=== PATIENT | female | born 1935 | race Caucasian/White ===

== ENCOUNTER 2019-07-14 15:40 | Inpatient (IN) | payer MEDICARE ==
[~2019-07-14] VITALS: Ht 157.5 cm; Wt 54.0 kg
[2019-07-14] MEDS ORDERED: LISI10TA2 PO (16:42)
[2019-07-14] MEDS ORDERED: ACET325T9 PO (16:42)
[2019-07-14] MEDS ORDERED: METF10007 PO (16:42)
[2019-07-14] MEDS ORDERED: CALC500T31 PO (16:42)
[2019-07-14] MEDS ORDERED: SERT50TA PO (16:42)
[2019-07-14] MEDS ORDERED: ONDA4TAB7 PO (16:42)
[2019-07-14] MEDS ORDERED: SITA50TA PO (16:42)
[2019-07-14] MEDS ORDERED: GLIM2TAB3 PO (16:42)
[2019-07-14 18:37] VITALS: BP 120/65
--- NOTE | 2019-07-14 19:59 | PDOC ---
Exam Note: Bryan Note: Please also refer to the separate dictated note~for this date of service dictated separately. Discussed the patient with Nursing staff reviewed the chart.~Reviewed interim history and current functioning. Reviewed vital signs,~Labs/ Radiology~and current medications noted below. Continue current treatment with the changes noted in the dictated addendum note Assessment: Vital Signs/I&O: Vital Signs Date Time Temp Pulse Resp B/P (MAP) Pulse Ox O2 Delivery O2 Flow Rate FiO2 07/14/19 18:37 98.2 75 16 120/65 (83) Room Air 96.0 Labs: Laboratory Tests Test 07/14/19 19:35 Glucose (Fingerstick) 195 mg/dL (70-99) H Current Medications: I have reviewed the current psychotropics carefully including drug interactions. Risk benefit ratio favors no change other than as noted in my dictated progress note. RODRIGO NORTON MD Jul 14, 2019 19:59
--- NOTE | 2019-07-14 21:33 | PN ---
DATE: 07/14/2019 PSYCHIATRIC PROGRESS NOTE This note covers the elements not covered in my initial note, 07/14/2019. IDENTIFYING DATA: The patient is an 84-year-old female, referred to us from the Emergency Room at [facility], where she presented from her independent living and admitted by her daughter, who is her power of board design engineer. She was brought to the ER on account of increased paranoia, totally convinced someone was stealing her money. Her family had brought the patient to the Emergency Room 07/13/2019 with acute mental status changes, increased confusion, not taking her medications at home, 20-pound weight loss in the past 1 month, and increased anxiety. She is obsessive and fearfulness that mice will get in her house because of 2 dishes being left in the sink. She is fixated on not having enough shoes and has 25 pairs of them. Symptoms have been worsening over the past 2-1/2 weeks. She has failed outpatient psychiatric interventions. Unable to function in the independent living, brought to the ER, and then referred for inpatient psychiatric hospitalization. CHIEF COMPLAINT: "Yes, I get a little forgetful, but people are stealing. My was a supervisor channel process. We used to sing together. He at 03:20 p.m. on 08/14/2016." The patient seemed to be very particular about this and had a sad affect as she related the loss of her 3 years ago. HISTORY OF PRESENT ILLNESS: The patient has been reasonably cognitively intact, but reportedly has had some short-term memory deficits, worsening paranoia, obsessiveness, anxiety, and depression. She minimizes the latter. She has had the weight change, quite significant, as noted above, some sleep disturbance, no active suicidal or homicidal ideation. At the previous hospital, she had the staff sanitize the hospital tray before she would eat off of it. She would not wear her hearing aids until her son-in-law sanitize them. She was paranoid about people stealing her money and checkbook, which she keeps with her all the time. ALLERGIES: Negative. CODE STATUS: DNR. ACCU-CHEKS: Daily. PAST MEDICAL HISTORY: Diabetes mellitus, hypertension, and acute dehydration. DIET: Regular, thin liquids. Takes her medications whole, ambulates independently. UA, 07/13/2019, was negative. CURRENT PSYCHOTROPICS: Zoloft 50 mg a day. FAMILY HISTORY: Noncontributory. SOCIAL HISTORY: No history of alcohol, drug abuse, physical, sexual, or elder abuse. She is not known to be a perpetrator. REACTION TO HOSPITALIZATION: The patient accepting of it. ASSETS: Supportive family. MENTAL STATUS EXAMINATION: The patient was seen individually evening of 07/14/2019. She is oriented to herself and situation. Speech has some latency, coherent. She is quite anxious, restless, constantly moving her fingers. Abstraction fair, computation is somewhat impaired, language function intact, and attention span short. Mood and affect remains somewhat withdrawn, anxious, somewhat paranoid, and obsessive. No active suicidal or homicidal ideation. LABORATORY DATA: Reviewed. 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 CT head prior to admission has been unremarkable. I will see the patient daily individually from a psychiatric standpoint. Medical followup with Dr. Patel. PLAN: Continued after she has been on Zoloft 50 mg a day for 2 days and will increase to 75 mg a day. Add Risperdal 0.125 mg p.o. at bedtime given her paranoia and to augment the antidepressants. Estimated length of stay 10-12 days. DISPOSITION PLANS: Possibly back to independent living when stable. MAN Orquidea NORTON MD DR: SANDY/diane JOB#: [id number] / [id number]
[2019-07-14] MEDS ORDERED: METHYL SALICYLATE/MENTHOL TOPICAL OINTMENT 57GM TUBE. TP PRN (22:45)
[2019-07-14] MEDS ORDERED: ACETAMINOPHEN 325 MG TABLET PO PRN ×2 (22:45→23:00)
[2019-07-14] MEDS ORDERED: MAG HYDROX/AL HYDROX/SIMETH 30 ML ORAL.SUSP PO PRN (22:45)
[2019-07-14] MEDS ORDERED: MAGNESIUM HYDROXIDE 2,400 MG/30 ML ORAL.SUSP. PO PRN (22:45)
[2019-07-14] MEDS ORDERED: CALCIUM CARBONATE 500 MG TAB.CHEW PO PRN (23:00)
[2019-07-14] MEDS ORDERED: ONDANSETRON ODT 4 MG TAB.RAPDIS PO PRN (23:15)
[2019-07-15 06:13] VITALS: BP 117/72
[2019-07-15 07:27] LABS: BASO # 0.1 x10^3/uL (0.0-0.2); BASO % 1 % (0-3); EOS # 0.1 x10^3/uL (0.0-0.7); EOS % 2 % (0-3); HEMATOCRIT 39.5 % (36.0-47.0); HEMOGLOBIN 13.1 g/dL (12.0-15.5); LYMPH # 1.3 x10^3/uL (1.0-4.8); LYMPH % 19 % (24-48); MEAN CORPUSCULAR HEMOGLOBIN 30 pg (25-35); MEAN CORPUSCULAR HGB CONC 33 g/dL (31-37); MEAN CORPUSCULAR VOLUME 92 fL (79-100); MONO # 0.7 x10^3/uL (0.0-1.1); MONO % 10 % (0-9); NEUT # 4.9 x10^3uL (1.8-7.7); NEUT % 69 % (31-73); PLATELET COUNT 204 x10^3/uL (140-400); RED BLOOD COUNT 4.31 x10^6/uL (3.50-5.40); RED CELL DISTRIBUTION WIDTH 14.2 % (11.5-14.5); WHITE BLOOD COUNT 7.1 x10^3/uL (4.0-11.0)
[2019-07-15 07:45] LABS: ALBUMIN/GLOBULIN RATIO 1.2 (1.0-1.7); CALCIUM 8.1 mg/dL (8.5-10.1); GFR 52.6; POTASSIUM 4.2 mmol/L (3.5-5.1); TOTAL BILIRUBIN 0.5 mg/dL (0.2-1.0); TOTAL PROTEIN 5.6 g/dL (6.4-8.2)
[2019-07-15] MEDS ORDERED: SERTRALINE 50 MG TABLET. PO SCH (09:00)
[2019-07-15] MEDS: SERTRALINE 50 MG TABLET. PO SCH (09:06)
[2019-07-15] MEDS: GLIMEPIRIDE 2 MG TABLET PO SCH (09:07)
[2019-07-15] MEDS: metFORMIN 500 MG TABLET PO SCH (09:07)
[2019-07-15] MEDS: LISINOPRIL 10 MG TABLET PO SCH (09:07)
[2019-07-15] MEDS: LINAGLIPTIN 5 MG TABLET PO SCH (09:08)
--- NOTE | 2019-07-15 12:44 | TX PLAN ---
Interdisciplinary Tx Plan Admission Information Jul 14, 2019 at 17:45 Legal Status (on Admission): Voluntary DPOA/Guardian Name: Nirali Martinez, DPOA Contact Verified Code Status: DNR Allergies: Coded Allergies: No Known Drug Allergies (Unverified , 07/14/19) Estimated Length of Stay: 10 Diagnoses Primary Diagnosis: Psychosis unspecified, MDD with Psychotic Features Reasons for Admission: Sig. Change Appetite, Anxiety/Panic, Suspicious/paranoid, Confusion/Disoriented Problem in Patient's Words: Per pt., "Well, that's the problem, I don't know." Per pt. daughter, pt. wasn't taking her medications correctly and was paranoid pt. daughter was not giving her the right medications. Problems Active Problems: Per pt. intake, pt. family brought her to the ED for increased confusion, not taking medication at home, 20 lb. weight loss in one month, increased anxiety, example - fearful mice will get in her house with two dishes being left in the sink, fixated on not having enough shoes when she has 25 pair, and increased paranoia - someone may steal her money. Inactive Problems: Pt. is medication compliant to encouragement. Pt Strengths/Limitations Ability for [place]: Fair Cognitive Functioning/Ability: Fair Communication Skills/Ability: Fair Financial Resources: Fair Insight/Judgement: Poor Intellectual Ability: Fair Physical Health: Fair Social Skills: Fair Stability in Family: Fair Verbal Skills: Fair Discharge Criteria Discharge Criteria: Able meet basic life need, Able to meet health needs, OP monitor medical prob, Adequate arrangements @DC, Adequate self-care, Verbal commit med comply, Improved behavior, Improved mood/thought Other Discharge Comments: Pt. may need a higher level of care at time of discharge. Preliminary Discharge Plan Preliminary DC Plan: Current Living Arrange. Special Precautions Fall Risk: Low Initial D/C Plan Pt. may return to her apartment at [facility], however, pt. may also require a higher level of care. Identified Discharge Needs: Follow up with PCP. Home Health if pt. returns home. Currently Utilized Resources Currently Utilized Resources/P: PCP Dr. Reyes Identified Problems/Hx/Goals Objectives/Short-Term Goals Short Term Goals: Control abnormal behavior, Dec. Anxiety/Panic, Medication Stabilization, Monitor Med Effects, Promote Coping Skill Short Term Goals in Patient's: Per pt., "I guess to get some help." "They are doing everything they can." Pt. daughter would like to figure out what is going on, as she reports "everything was fine" 2 1/2 weeks ago. Interventions/Frequency Staff Interventions/Frequency&: Psychiatrist - Daily Nursing - Daily SW - 3 times weekly RT - 3 times weekly History Vocational History: Per pt., "I can't remember." Pt. 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 graduated from high school. Community Follow-up Pt. will need a follow up with PCP. Possible need for home health if pt. returns to her apartment. Treatment Plan Explained Patient/Metallurgy Teacher had this treatment plan explained to him/her as indicated by the signature below and has been given the opportunity to ask questions and make suggestions: Date: Patient/Metallurgy Teacher Signature: Patient/Metallurgy Teacher Decline: No Additional Comments Pt. daughter, Nirali, would like to be contacted for treatment team. Team Members Signatures Team Members Psychiatrist Date Nursing Date CM/SW Date Activity Therapy Date Other Date Other Date WAITERICJul 15, 2019 12:43
[2019-07-15 14:20] LABS: THYROID STIM HORMONE (TSH) 1.208 uIU/mL (0.358-3.740)
[2019-07-15 15:55] VITALS: BP 149/77
[2019-07-15 17:07] LABS: THYROXINE 6.9 ug/dL (4.5-12.0)
--- NOTE | 2019-07-15 19:53 | PDOC ---
Exam Note: Bryan Note: Please also refer to the separate dictated note~for this date of service dictated separately.~Patient seen individually. Discussed the patient with Nursing staff reviewed the chart.~Reviewed interim history and current functioning. Reviewed vital signs,~Labs/ Radiology~and current medications noted below. Continue current treatment with the changes noted in the dictated addendum note Assessment: Vital Signs/I&O: Vital Signs Date Time Temp Pulse Resp B/P (MAP) Pulse Ox O2 Delivery O2 Flow Rate FiO2 07/15/19 15:55 98.4 79 16 149/77 (101) 95 07/15/19 06:13 Room Air 07/14/19 18:37 96.0 I & O 07/14/19 07/14/19 07/15/19 14:59 22:59 06:59 Intake Total 480 ml Balance 480 ml Labs: Laboratory Tests Test 07/15/19 07:05 07/15/19 07:25 White Blood Count 7.1 x10^3/uL (4.0-11.0) Red Blood Count 4.31 x10^6/uL (3.50-5.40) Hemoglobin 13.1 g/dL (12.0-15.5) Hematocrit 39.5 % (36.0-47.0) Mean Corpuscular Volume 92 fL (79-100) Mean Corpuscular Hemoglobin 30 pg (25-35) Mean Corpuscular Hemoglobin Concent 33 g/dL (31-37) Red Cell Distribution Width 14.2 % (11.5-14.5) Platelet Count 204 x10^3/uL (140-400) Neutrophils (%) (Auto) 69 % (31-73) Lymphocytes (%) (Auto) 19 % (24-48) L Monocytes (%) (Auto) 10 % (0-9) H Eosinophils (%) (Auto) 2 % (0-3) Basophils (%) (Auto) 1 % (0-3) Neutrophils # (Auto) 4.9 x10^3uL (1.8-7.7) Lymphocytes # (Auto) 1.3 x10^3/uL (1.0-4.8) Monocytes # (Auto) 0.7 x10^3/uL (0.0-1.1) Eosinophils # (Auto) 0.1 x10^3/uL (0.0-0.7) Basophils # (Auto) 0.1 x10^3/uL (0.0-0.2) Sodium Level 143 mmol/L (136-145) Potassium Level 4.2 mmol/L (3.5-5.1) Chloride Level 110 mmol/L (98-107) H Carbon Dioxide Level 23 mmol/L (21-32) Anion Gap 10 (6-14) Blood Urea Nitrogen 22 mg/dL (7-20) H Creatinine 1.0 mg/dL (0.6-1.0) Estimated GFR (Cockcroft-Gault) 52.6 BUN/Creatinine Ratio 22 (6-20) H Glucose Level 104 mg/dL (70-99) H Calcium Level 8.1 mg/dL (8.5-10.1) L Magnesium Level 2.0 mg/dL (1.8-2.4) Iron Level 80 ug/dL (50-170) Total Iron Binding Capacity 209 ug/dL (250-450) L Iron Saturation 38 % (15-34) H Total Bilirubin 0.5 mg/dL (0.2-1.0) Aspartate Amino Transferase (AST) 28 U/L (15-37) Alanine Aminotransferase (ALT) 23 U/L (14-59) Alkaline Phosphatase 59 U/L (46-116) Total Protein 5.6 g/dL (6.4-8.2) L Albumin 3.0 g/dL (3.4-5.0) L Albumin/Globulin Ratio 1.2 (1.0-1.7) Triglycerides Level 104 mg/dL (0-150) Cholesterol Level 92 mg/dL (0-200) LDL Cholesterol, Calculated 41 mg/dL (0-100) VLDL Cholesterol, Calculated 20 mg/dL (0-40) Non-HDL Cholesterol Calculated 61 mg/dL (0-129) HDL Cholesterol 31 mg/dL (40-60) L Cholesterol/HDL Ratio 2.0 Vitamin B12 Level 164 pg/mL (247-911) L 25-Hydroxy Vitamin D Total 16.0 ng/mL (30-100) L Thyroid Stimulating Hormone (TSH) 1.208 uIU/mL (0.358-3.740) Thyroxine (T4) 6.9 ug/dL (4.5-12.0) Total Triiodothyronine (TT3) 65 ng/dL (71-180) L Treponema pallidum Antibody Nonreactive (Nonreactive) Glucose (Fingerstick) 108 mg/dL (70-99) H Current Medications: Meds: Current Medications Medications (Trade) Dose Ordered Sig/Gena Route PRN Reason Start Time Stop Time Status Last Admin Dose Admin Glimepiride (Amaryl) 2 mg DAILY PO 07/15/19 09:00 07/15/19 09:07 Lisinopril (Prinivil) 10 mg DAILY PO 07/15/19 09:00 07/15/19 09:07 Metformin HCl (Glucophage) 1,000 mg DAILYWBKFT PO 07/15/19 08:00 07/15/19 09:07 Linagliptin (Tradjenta) 5 mg DAILY PO 07/15/19 09:00 07/15/19 09:08 Sertraline HCl (Zoloft) 75 mg DAILY PO 07/15/19 09:00 07/15/19 09:06 I have reviewed the current psychotropics carefully including drug interactions. Risk benefit ratio favors no change other than as noted in my dictated progress note. Diagnosis: Problems: (1) Anxiety disorder (2) Major depressive disorder, recurrent episode (3) Psychosis, atypical (4) Psychotic depression RODRIGO NORTON MD Jul 15, 2019 19:53
[2019-07-15] MEDS: risperiDONE 0.25 MG TABLET. PO SCH (20:43)
[2019-07-16 00:06] LABS: HEMOGLOBIN A1C 7.9 % (4.8-5.6)
[2019-07-16 06:25] VITALS: BP 145/71
[2019-07-16] MEDS: SERTRALINE 50 MG TABLET. PO SCH (09:11)
[2019-07-16] MEDS: LISINOPRIL 10 MG TABLET PO SCH (09:12)
[2019-07-16] MEDS: metFORMIN 500 MG TABLET PO SCH (09:12)
[2019-07-16] MEDS: GLIMEPIRIDE 2 MG TABLET PO SCH (09:12)
[2019-07-16] MEDS: LINAGLIPTIN 5 MG TABLET PO SCH (09:12)
[2019-07-16 16:10] VITALS: BP 144/73
--- NOTE | 2019-07-16 19:56 | PDOC ---
Exam Note: Bryan Note: Please also refer to the separate dictated note~for this date of service dictated separately.~Patient seen individually. Discussed the patient with Nursing staff reviewed the chart.~Reviewed interim history and current functioning. Reviewed vital signs,~Labs/ Radiology~and current medications noted below. Continue current treatment with the changes noted in the dictated addendum note Assessment: Vital Signs/I&O: Vital Signs Date Time Temp Pulse Resp B/P (MAP) Pulse Ox O2 Delivery O2 Flow Rate FiO2 07/16/19 16:10 97.9 87 19 144/73 (96) 96 Room Air 07/14/19 18:37 96.0 I & O 07/15/19 07/15/19 07/16/19 15:00 23:00 07:00 Intake Total 300 ml 240 ml 120 ml Balance 300 ml 240 ml 120 ml Labs: Laboratory Tests Test 07/16/19 08:00 Glucose (Fingerstick) 156 mg/dL (70-99) H Current Medications: Meds: Current Medications Medications (Trade) Dose Ordered Sig/Gena Route PRN Reason Start Time Stop Time Status Last Admin Dose Admin Risperidone (RisperDAL) 0.125 mg HS PO 07/15/19 21:00 07/15/19 20:43 I have reviewed the current psychotropics carefully including drug interactions. Risk benefit ratio favors no change other than as noted in my dictated progress note. Diagnosis: Problems: (1) Anxiety disorder (2) Major depressive disorder, recurrent episode (3) Psychosis, atypical (4) Psychotic depression RODRIGO NORTON MD Jul 16, 2019 19:56
[2019-07-16] MEDS: risperiDONE 0.25 MG TABLET. PO SCH (20:39)
--- NOTE | 2019-07-16 23:53 | PN ---
DATE: 07/15/2019 PSYCHIATRIC PROGRESS NOTE This late entry 07/15/2019 covers elements not covered in my initial note. SUBJECTIVE: I met with the patient in the evening. Per HAKAN Guo, the patient slept 5-1/2 hours previous evening. The patient resistive to medications, later took her medications during the day, somewhat withdrawn, does have some short-term memory deficits. CT head negative. REVIEW OF SYSTEMS: No CV, , pulmonary, eye system symptoms on review. MENTAL STATUS EXAM: Oriented to herself and situation. Speech has some latency, coherent, often responses monosyllabic. Abstraction fair, computation impaired, language function intact. Mood and affect somewhat withdrawn. LABORATORY DATA: Reviewed. IMPRESSION: Psychotic disorder, unspecified; major neurocognitive disorder; early Alzheimer, vascular with delusion; depression; anxiety disorder, unspecified. Rest unchanged. PLAN: Continue psychotropics from initial note. Zoloft has been increased from 50 mg a day to 75 mg a day, Risperdal added 0.125 mg at bedtime. Rest unchanged for now. MAN Orquidea NORTON MD DR: SANDY/diane JOB#: [id number] / [id number]
[2019-07-17 06:36] VITALS: BP 155/75
[2019-07-17] MEDS: metFORMIN 500 MG TABLET PO SCH (08:27)
[2019-07-17] MEDS: SERTRALINE 50 MG TABLET. PO SCH (08:27)
[2019-07-17] MEDS: LINAGLIPTIN 5 MG TABLET PO SCH (08:27)
[2019-07-17] MEDS: LISINOPRIL 10 MG TABLET PO SCH (08:28)
[2019-07-17] MEDS: GLIMEPIRIDE 2 MG TABLET PO SCH (08:28)
--- NOTE | 2019-07-17 08:58 | HP ---
ADMIT DATE: 07/14/2019 PSYCHIATRIC PROGRESS NOTE This note covers the elements not covered in my initial note, 07/14/2019. IDENTIFYING DATA: The patient is an 84-year-old female, referred to us from the Emergency Room at [facility], where she presented from her independent living and admitted by her daughter, who is her power of real estate attorney. She was brought to the ER on account of increased paranoia, totally convinced someone was stealing her money. Her family had brought the patient to the Emergency Room 07/13/2019 with acute mental status changes, increased confusion, not taking her medications at home, 20-pound weight loss in the past 1 month, and increased anxiety. She is obsessive and fearfulness that mice will get in her house because of 2 dishes being left in the sink. She is fixated on not having enough shoes and has 25 pairs of them. Symptoms have been worsening over the past 2-1/2 weeks. She has failed outpatient psychiatric interventions. Unable to function in the independent living, brought to the ER, and then referred for inpatient psychiatric hospitalization. CHIEF COMPLAINT: "Yes, I get a little forgetful, but people are stealing. My was a broach setter. We used to sing together. He at 03:20 p.m. on 08/14/2016." The patient seemed to be very particular about this and had a sad affect as she related the loss of her 3 years ago. HISTORY OF PRESENT ILLNESS: The patient has been reasonably cognitively intact, but reportedly has had some short-term memory deficits, worsening paranoia, obsessiveness, anxiety, and depression. She minimizes the latter. She has had the weight change, quite significant, as noted above, some sleep disturbance, no active suicidal or homicidal ideation. At the previous hospital, she had the staff sanitize the hospital tray before she would eat off of it. She would not wear her hearing aids until her son-in-law sanitize them. She was paranoid about people stealing her money and checkbook, which she keeps with her all the time. ALLERGIES: Negative. CODE STATUS: DNR. ACCU-CHEKS: Daily. PAST MEDICAL HISTORY: Diabetes mellitus, hypertension, and acute dehydration. DIET: Regular, thin liquids. Takes her medications whole, ambulates independently. UA, 07/13/2019, was negative. CURRENT PSYCHOTROPICS: Zoloft 50 mg a day. FAMILY HISTORY: Noncontributory. SOCIAL HISTORY: No history of alcohol, drug abuse, physical, sexual, or elder abuse. She is not known to be a perpetrator. REACTION TO HOSPITALIZATION: The patient accepting of it. ASSETS: Supportive family. MENTAL STATUS EXAMINATION: The patient was seen individually evening of 07/14/2019. She is oriented to herself and situation. Speech has some latency, coherent. She is quite anxious, restless, constantly moving her fingers. Abstraction fair, computation is somewhat impaired, language function intact, and attention span short. Mood and affect remains somewhat withdrawn, anxious, somewhat paranoid, and obsessive. No active suicidal or homicidal ideation. LABORATORY DATA: Reviewed. 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 CT head prior to admission has been unremarkable. I will see the patient daily individually from a psychiatric standpoint. Medical followup with Dr. Patel. PLAN: Continued after she has been on Zoloft 50 mg a day for 2 days and will increase to 75 mg a day. Add Risperdal 0.125 mg p.o. at bedtime given her paranoia and to augment the antidepressants. Estimated length of stay 10-12 days. DISPOSITION PLANS: Possibly back to independent living when stable. MAN Orquidea NORTON MD DR: SANDY/diane JOB#: [id number] / [id number]
[2019-07-17 15:44] VITALS: BP 133/74
--- NOTE | 2019-07-17 19:54 | PDOC ---
Exam Note: Bryan Note: Please also refer to the separate dictated note~for this date of service dictated separately.~Patient seen individually. Discussed the patient with Nursing staff reviewed the chart.~Reviewed interim history and current functioning. Reviewed vital signs,~Labs/ Radiology~and current medications noted below. Continue current treatment with the changes noted in the dictated addendum note Assessment: Vital Signs/I&O: Vital Signs Date Time Temp Pulse Resp B/P (MAP) Pulse Ox O2 Delivery O2 Flow Rate FiO2 07/17/19 15:44 97.8 80 18 133/74 (93) 96 07/16/19 16:10 Room Air 07/14/19 18:37 96.0 I & O 07/16/19 07/16/19 07/17/19 15:00 23:00 07:00 Intake Total 240 ml 360 ml Balance 240 ml 360 ml Labs: Laboratory Tests Test 07/17/19 07:20 Glucose (Fingerstick) 180 mg/dL (70-99) H Current Medications: I have reviewed the current psychotropics carefully including drug interactions. Risk benefit ratio favors no change other than as noted in my dictated progress note. Diagnosis: Problems: (1) Anxiety disorder (2) Major depressive disorder, recurrent episode (3) Psychosis, atypical (4) Psychotic depression RODRIGO NORTON MD Jul 17, 2019 19:54
[2019-07-17] MEDS: risperiDONE 0.25 MG TABLET. PO SCH (20:16)
--- NOTE | 2019-07-17 21:10 | PN ---
DATE: 07/16/2019 PSYCHIATRIC PROGRESS NOTE This late entry 07/16/2019 covers the elements not covered in my initial note. SUBJECTIVE: I met with the patient in the evening of 07/16/2019 and staffed at a treatment team meeting with the entire team in the morning and the patient's daughter, Roslyn attended the conference. Social service staff remarked how Roslyn becomes extremely emotional when visiting the patient and we addressed this with her, encouraging her to be a symbol of stability in the patient's life and managing her own emotions about her mother's condition might be helpful. The patient reportedly has had a significant change in her mood and anxiety over the last 2-1/2 weeks or so. Sleeping 5-1/2 hours, more confused at times, attending groups. REVIEW OF SYSTEMS: No CV, , pulmonary, eye system symptoms on review. Reliability poor. MENTAL STATUS EXAM: Oriented to herself and situation. Insight, judgment, recent memory is impaired. Language function is intact. Mood and affect withdrawn, depressed. She was the only one left after supper in the dining room, eating very slowly that is where I met with her. IMPRESSION: Unchanged from initial note. PLAN: No change from initial note and we will further make adjustments in her Zoloft, which is currently 75 mg a day, Risperdal 0.125 mg at bedtime. There is no clear reason to consider cholinesterase inhibitors at this stage. MAN Orquidea NORTON MD DR: SANDY/diane JOB#: [id number] / [id number]
[2019-07-18 05:50] VITALS: BP 124/65
[2019-07-18] MEDS: SERTRALINE 50 MG TABLET. PO SCH (09:23)
[2019-07-18] MEDS: LINAGLIPTIN 5 MG TABLET PO SCH (09:25)
[2019-07-18] MEDS: GLIMEPIRIDE 2 MG TABLET PO SCH (09:25)
[2019-07-18] MEDS: LISINOPRIL 10 MG TABLET PO SCH (09:25)
[2019-07-18] MEDS: metFORMIN 500 MG TABLET PO SCH (09:25)
--- NOTE | 2019-07-18 11:08 | PN ---
DATE: 07/17/2019 PSYCHIATRIC PROGRESS NOTE This late entry of 07/17/2019 covers elements not covered in my initial note. SUBJECTIVE: I met with the patient in the evening of 07/17/2019. The patient slept 6-1/2 hours previous night. The patient's daughter, Roslyn had attended the treatment team meeting the day before and we discussed at some length appropriate interactions with the patient to help her with some stability within the context of her worsening confusion and psychotic symptoms. Roslyn seemed quite receptive. REVIEW OF SYSTEMS: Positive for tiredness. No CV, , pulmonary, eye system symptoms on review. She is quite anxious, withdrawn, suspicious, as I met with her. MENTAL STATUS EXAM: Oriented to herself, times, situation. Speech has some latency, often responses monosyllabic. Abstraction fair, computation impaired, language function intact. Mood and affect withdrawn. LABORATORY DATA: Reviewed. IMPRESSION: Major depressive disorder, recurrent with psychotic features; mild cognitive impairment; psychotic disorder, unspecified. Rest unchanged. PLAN: No change from initial note. Maintain Zoloft and Risperdal. MAN Orquidea NORTON MD DR: SANDY/diane JOB#: [id number] / [id number]
--- NOTE | 2019-07-18 11:08 | PN ---
DATE: 07/18/2019 PSYCHIATRIC PROGRESS NOTE This late entry, 07/18, covers the elements not covered in my initial note. SUBJECTIVE: I met with the patient on the morning of 07/18. The patient slept 6-1/4 hours previous night. She appears confused, anxious met with her in her room, not very verbal, very tentative. REVIEW OF SYSTEMS: No CV, , pulmonary, eye systems symptoms on review. MENTAL STATUS EXAM: Oriented to herself, at times situation. Insight, judgment, recent memory is impaired. Language function intact. Mood and affect depressed, withdrawn, paranoid. LABORATORY DATA: Reviewed. IMPRESSION: Unchanged from initial note. PLAN: No change from initial note. RODRIGO NORTON MD DR: SANDY/diane JOB#: [id number] / [id number]
[2019-07-18 16:16] VITALS: BP 110/67
--- NOTE | 2019-07-18 17:15 | CONS ---
DATE OF CONSULTATION: 07/18/2019 REASON FOR CONSULTATION: Medical management. HISTORY OF PRESENT ILLNESS: The patient is an 84-year-old female patient who lives at home and was referred from [facility] Emergency Room on account of increased confusion, not taking her medications. She had 20-pound weight loss in the last month. She has increased anxiety. She is fearful mice will get into her house since she left two dishes in the sink, fixated on not having enough shoes. She has 25 pairs, obsessed with cleanliness. 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 Medically, she is known to have type 2 diabetes, hypertension and episodes of acute dehydration. PAST SURGICAL HISTORY: Unobtainable. ALLERGIES: She has no known drug allergies. MEDICATIONS: She is currently on following medications: She is on lisinopril 10 mg once a day, acetaminophen 650 mg every 4 hours, sertraline 50 mg daily, calcium carbonate 500 mg 4 times a day, ondansetron 4 mg every 6 hours, metformin 1000 mg daily, sitagliptin phosphate 50 mg daily and glimepiride 2 mg once a day. FAMILY HISTORY: Noncontributory. SOCIAL HISTORY: She lives at home. She does not smoke, drink alcohol or use any recreational drugs. REVIEW OF SYSTEMS: Unobtainable as the patient was extremely anxious when we approached her and actually refusing to talk to us. PHYSICAL EXAMINATION: GENERAL: On examining her, she looked pale, but no jaundice, cyanosis or thyromegaly. No jugular venous distension. No lower limb edema. VITAL SIGNS: Her heart rate was 74, blood pressure 110/67, temperature was 97.2, respiratory rate was 20 and oxygen saturation was 97%. HEAD, EYES, EARS, NOSE AND THROAT: Showed normocephalic, atraumatic. NECK: Supple. HEART: Showed normal first and second heart sounds with no gallop or murmur. CHEST: Clear to auscultation. No crepitation or rhonchi. ABDOMEN: Scaphoid, soft, nontender. NEUROLOGIC: She seems to be grossly intact. She is able to ambulate without assistance or assistive devices. LABORATORY DATA: Showed white cell count 7100, hemoglobin 13, hematocrit 39, MCV 92 and platelet count of 204,000. Her chemistry showed serum sodium 143, potassium 4.2, chloride 110, bicarbonate 23, anion gap of 10, BUN 22, creatinine 1, estimated GFR was 52 mL per minute, glucose 104. Her hemoglobin A1c was 7.9%. Calcium was 8.1, magnesium was 2. Her serum iron 80, TIBC was 209 and iron saturation was 38. Her total bilirubin, AST, ALT, alkaline phosphatase were normal. Total protein was 5.6, albumin 3. Her serum triglycerides were 104, cholesterol 92, LDL was 41, VLDL was 20 and HDL cholesterol was 31 and ratio was 2. Her vitamin B12 is 164 picograms, which is extremely low. TSH was normal; however, her 25-hydroxyvitamin D was 16 ng/mL. Her T3 is low at 65 and total T4 is 6.9, which is well within normal range. Her treponema pallidum antibodies were nonreactive. IMPRESSION: In summary, this is an 84-year-old female patient who was admitted with increased confusion and not taking her medication. She has lost 20 pounds in the last month. She has increased anxiety, fearful that mice will get into her house since she left two dishes at the sink, fixated on not having enough shoes, perhaps she has 25 pairs, obsessed with clamminess. Looking at her labs, the patient has extremely low vitamin B12 and vitamin D. Her vitamin B12 is only 164, with the lower limit of normal at 247 pg/mL and vitamin D is only 60 ng/mL, normal range of 30 to 100. PLAN: My plan is to start her on vitamin D supplement as well as vitamin B12 supplement. Thank you, Dr. Reynoso for allowing me to participate in the care of this patient. MIGUEL ANGEL CASTILLO MD DR: MANSOOR/diane JOB#: [id number] / [id number]
[2019-07-18] MEDS: CHOLECALCIFEROL (VITAMIN D3) 50,000 UNIT CAPSULE PO SCH (17:16)
[2019-07-18] MEDS: risperiDONE 0.25 MG TABLET. PO SCH (20:02)
--- NOTE | 2019-07-18 20:40 | PDOC ---
Exam Note: Bryan Note: Please also refer to the separate dictated note~for this date of service dictated separately.~Patient seen individually. Discussed the patient with Nursing staff reviewed the chart.~Reviewed interim history and current functioning. Reviewed vital signs,~Labs/ Radiology~and current medications noted below. Continue current treatment with the changes noted in the dictated addendum note Assessment: Vital Signs/I&O: Vital Signs Date Time Temp Pulse Resp B/P (MAP) Pulse Ox O2 Delivery O2 Flow Rate FiO2 07/18/19 16:16 97.2 74 20 110/67 (81) 97 07/16/19 16:10 Room Air 07/14/19 18:37 96.0 I & O 07/17/19 07/17/19 07/18/19 14:59 22:59 06:59 Intake Total 480 ml 240 ml Balance 480 ml 240 ml Labs: Laboratory Tests Test 07/18/19 07:50 Glucose (Fingerstick) 110 mg/dL (70-99) H Current Medications: Meds: Current Medications Medications (Trade) Dose Ordered Sig/Gena Route PRN Reason Start Time Stop Time Status Last Admin Dose Admin Vitamin D (Vitamin D3) 50,000 unit WEEKLY PO 07/18/19 16:45 07/18/19 17:16 I have reviewed the current psychotropics carefully including drug interactions. Risk benefit ratio favors no change other than as noted in my dictated progress note. Diagnosis: Problems: (1) Anxiety disorder (2) Major depressive disorder, recurrent episode (3) Psychosis, atypical (4) Psychotic depression RODRIGO NORTON MD Jul 18, 2019 20:40
[2019-07-19 06:31] VITALS: BP 144/69
[2019-07-19] MEDS: LISINOPRIL 10 MG TABLET PO SCH (08:46)
[2019-07-19] MEDS: metFORMIN 500 MG TABLET PO SCH (08:46)
[2019-07-19] MEDS: GLIMEPIRIDE 2 MG TABLET PO SCH (08:46)
[2019-07-19] MEDS: CYANOCOBALAMIN (VITAMIN B-12) 1,000 MCG/ML VIAL IM SCH ×2 (08:47→13:32)
[2019-07-19] MEDS: LINAGLIPTIN 5 MG TABLET PO SCH (08:47)
[2019-07-19] MEDS: SERTRALINE 50 MG TABLET. PO SCH (08:47)
[2019-07-19 15:36] VITALS: BP 150/74
[2019-07-19] MEDS: CIPROFLOXACIN 0.3% OPHTH SOLUTION 2.5ML BOTTLE. OU SCH (19:58)
[2019-07-19] MEDS: risperiDONE 0.25 MG TABLET. PO SCH (19:58)
--- NOTE | 2019-07-19 20:07 | PDOC ---
Exam Note: Bryan Note: Please also refer to the separate dictated note~for this date of service dictated separately.~Patient seen individually. Discussed the patient with Nursing staff reviewed the chart.~Reviewed interim history and current functioning. Reviewed vital signs,~Labs/ Radiology~and current medications noted below. Continue current treatment with the changes noted in the dictated addendum note Assessment: Vital Signs/I&O: Vital Signs Date Time Temp Pulse Resp B/P (MAP) Pulse Ox O2 Delivery O2 Flow Rate FiO2 07/19/19 15:36 97.1 85 16 150/74 (99) 95 07/16/19 16:10 Room Air 07/14/19 18:37 96.0 I & O 07/18/19 07/18/19 07/19/19 15:00 23:00 07:00 Intake Total 240 ml 340 ml Balance 240 ml 340 ml Labs: Laboratory Tests Test 07/19/19 08:58 Glucose (Fingerstick) 157 mg/dL (70-99) H Current Medications: Meds: Current Medications Medications (Trade) Dose Ordered Sig/Gena Route PRN Reason Start Time Stop Time Status Last Admin Dose Admin Ciprofloxacin 1 drop TID OU 07/19/19 21:00 07/24/19 20:59 07/19/19 19:58 I have reviewed the current psychotropics carefully including drug interactions. Risk benefit ratio favors no change other than as noted in my dictated progress note. Diagnosis: Problems: (1) Anxiety disorder (2) Major depressive disorder, recurrent episode (3) Psychosis, atypical (4) Psychotic depression RODRIGO NORTON MD Jul 19, 2019 20:07
[2019-07-20 06:01] VITALS: BP 129/69
[2019-07-20] MEDS: metFORMIN 500 MG TABLET PO SCH (08:00)
[2019-07-20] MEDS: SERTRALINE 50 MG TABLET. PO SCH (08:06)
[2019-07-20] MEDS: GLIMEPIRIDE 2 MG TABLET PO SCH (08:07)
[2019-07-20] MEDS: LINAGLIPTIN 5 MG TABLET PO SCH (08:07)
[2019-07-20] MEDS: CIPROFLOXACIN 0.3% OPHTH SOLUTION 2.5ML BOTTLE. OU SCH ×4 (08:08→20:28)
[2019-07-20] MEDS: LISINOPRIL 10 MG TABLET PO SCH (09:00)
[2019-07-20] MEDS: FLUoxetine HCL 10 MG CAPSULE PO SCH (12:23)
[2019-07-20 15:52] VITALS: BP 131/79
[2019-07-20] MEDS: risperiDONE 0.25 MG TABLET. PO SCH (20:28)
--- NOTE | 2019-07-20 21:57 | PDOC ---
Exam Note: Bryan Note: Please also refer to the separate dictated note~for this date of service dictated separately.~Patient seen individually. Discussed the patient with Nursing staff reviewed the chart.~Reviewed interim history and current functioning. Reviewed vital signs,~Labs/ Radiology~and current medications noted below. Continue current treatment with the changes noted in the dictated addendum note Assessment: Vital Signs/I&O: Vital Signs Date Time Temp Pulse Resp B/P (MAP) Pulse Ox O2 Delivery O2 Flow Rate FiO2 07/20/19 15:52 97.5 94 18 131/79 (96) 92 07/16/19 16:10 Room Air 07/14/19 18:37 96.0 I & O 07/19/19 07/19/19 07/20/19 15:00 23:00 07:00 Intake Total 240 ml 300 ml 240 ml Output Total 50 ml Balance 240 ml 250 ml 240 ml Labs: Laboratory Tests Test 07/20/19 07:25 Glucose (Fingerstick) 117 mg/dL (70-99) H Current Medications: Meds: Current Medications Medications (Trade) Dose Ordered Sig/Gena Route PRN Reason Start Time Stop Time Status Last Admin Dose Admin Fluoxetine HCl (PROzac) 10 mg DAILY PO 07/20/19 11:15 07/20/19 12:23 I have reviewed the current psychotropics carefully including drug interactions. Risk benefit ratio favors no change other than as noted in my dictated progress note. Diagnosis: Problems: (1) Anxiety disorder (2) Major depressive disorder, recurrent episode (3) Psychosis, atypical (4) Psychotic depression RODRIGO NORTON MD Jul 20, 2019 21:56
[2019-07-20] MEDS ORDERED: traZODone 50 MG TABLET. PO PRN (23:00)
[2019-07-20] MEDS: MIRTAZAPINE 7.5 MG TABLET. PO SCH (23:26)
[2019-07-21 06:01] VITALS: BP 117/69
[2019-07-21] MEDS: metFORMIN 500 MG TABLET PO SCH (09:06)
[2019-07-21] MEDS: LINAGLIPTIN 5 MG TABLET PO SCH (09:07)
[2019-07-21] MEDS: FLUoxetine HCL 10 MG CAPSULE PO SCH (09:07)
[2019-07-21] MEDS: GLIMEPIRIDE 2 MG TABLET PO SCH (09:07)
[2019-07-21] MEDS: LISINOPRIL 10 MG TABLET PO SCH (09:08)
[2019-07-21] MEDS: CIPROFLOXACIN 0.3% OPHTH SOLUTION 2.5ML BOTTLE. OU SCH ×3 (09:08→20:19)
[2019-07-21] MEDS ORDERED: OLANZapine 2.5 MG TABLET PO PRN (14:30)
[2019-07-21 16:15] VITALS: BP 120/73
[2019-07-21] MEDS: MIRTAZAPINE 7.5 MG TABLET. PO SCH (20:19)
[2019-07-21] MEDS: risperiDONE 0.25 MG TABLET. PO SCH (20:19)
--- NOTE | 2019-07-21 20:44 | PDOC ---
Exam Note: Bryan Note: Please also refer to the separate dictated note~for this date of service dictated separately.~Patient seen individually. Discussed the patient with Nursing staff reviewed the chart.~Reviewed interim history and current functioning. Reviewed vital signs,~Labs/ Radiology~and current medications noted below. Continue current treatment with the changes noted in the dictated addendum note Assessment: Vital Signs/I&O: Vital Signs Date Time Temp Pulse Resp B/P (MAP) Pulse Ox O2 Delivery O2 Flow Rate FiO2 07/21/19 16:15 98.3 84 16 120/73 (89) 96 07/16/19 16:10 Room Air I & O 07/20/19 07/20/19 07/21/19 14:59 22:59 06:59 Intake Total 360 ml 120 ml Balance 360 ml 120 ml Labs: Laboratory Tests Test 07/21/19 07:17 Glucose (Fingerstick) 109 mg/dL (70-99) H Current Medications: Meds: Current Medications Medications (Trade) Dose Ordered Sig/Gena Route PRN Reason Start Time Stop Time Status Last Admin Dose Admin Mirtazapine (Remeron) 7.5 mg QHS PO 07/20/19 23:30 07/21/19 20:19 I have reviewed the current psychotropics carefully including drug interactions. Risk benefit ratio favors no change other than as noted in my dictated progress note. Diagnosis: Problems: (1) Anxiety disorder (2) Major depressive disorder, recurrent episode (3) Psychosis, atypical (4) Psychotic depression RODRIGO NORTON MD Jul 21, 2019 20:44
[2019-07-21] MEDS ORDERED: MIRTAZAPINE 7.5 MG TABLET. PO SCH (21:00)
--- NOTE | 2019-07-21 22:23 | PN ---
DATE: 07/19/2019 PSYCHIATRIC PROGRESS NOTE This late entry 07/19 covers elements not covered in my initial note. SUBJECTIVE: I met with the patient individually. The patient slept 6-1/4 hours previous night. She has been refusing medications, takes them at times in pudding. We will check a CT head if one has not been done recently. She is also having an inflamed left eye and we will start her on Cipro eyedrops 3 times a day for 5 days. She remains withdrawn, somewhat suspicious, not very verbally interactive. REVIEW OF SYSTEMS: No CV, , pulmonary, ENT system symptoms on review. Eye symptoms noted above. Reliability poor. MENTAL STATUS EXAM: Oriented to herself and situation. Speech moderate to marked latency, often responses monosyllabic. Abstraction fair, computation impaired, language function intact. Mood and affect withdrawn. LABORATORY DATA: Reviewed. IMPRESSION: Major depressive disorder with psychotic features; mild cognitive impairment; psychotic disorder, unspecified. Rest as above. PLAN: Continue current psychotropics, Zoloft and Risperdal. Check CT head if not done recently. Encourage compliance with psychotropics and I addressed this at some length with her. MAN Orquidea NORTON MD DR: SANDY/diane JOB#: [id number] / [id number]
--- NOTE | 2019-07-21 22:49 | PN ---
DATE: 07/20/2019 PSYCHIATRIC PROGRESS NOTE This late entry 07/20 covers elements not covered in my initial note. SUBJECTIVE: I met with the patient individually. The patient slept just 2-3/4 hours previous night. Per nursing report, she was somewhat withdrawn, almost catatonic last evening. She is easily startled by loud noises and movements. REVIEW OF SYSTEMS: No CV, , pulmonary, eye system symptoms on review. MENTAL STATUS EXAMINATION: Oriented to herself and situation. Speech is slow in rate and rhythm, low in volume, often responses monosyllabic. Abstraction fair, computation impaired, language function intact. Mood and affect withdrawn, depressed. LABORATORY DATA: Reviewed. IMPRESSION: Major depressive disorder with psychotic features; mild cognitive impairment; psychotic disorder, unspecified. PLAN: Change the Zoloft to Prozac 10 mg a day. Start Remeron 7.5 mg at bedtime to help with her insomnia. Maintain Risperdal 0.125 mg at bedtime. She did have a CT head at [facility] prior to this admission and we will not repeat it. RODRIGO NORTON MD DR: SANDY/diane JOB#: [id number] / [id number]
[2019-07-22 06:18] VITALS: BP 118/65
[2019-07-22 06:26] LABS: BASO # 0.1 x10^3/uL (0.0-0.2); BASO % 1 % (0-3); EOS # 0.2 x10^3/uL (0.0-0.7); EOS % 2 % (0-3); HEMATOCRIT 42.9 % (36.0-47.0); HEMOGLOBIN 14.2 g/dL (12.0-15.5); LYMPH # 2.4 x10^3/uL (1.0-4.8); LYMPH % 28 % (24-48); MEAN CORPUSCULAR HEMOGLOBIN 30 pg (25-35); MEAN CORPUSCULAR HGB CONC 33 g/dL (31-37); MEAN CORPUSCULAR VOLUME 92 fL (79-100); MONO # 0.7 x10^3/uL (0.0-1.1); MONO % 9 % (0-9); NEUT # 5.4 x10^3uL (1.8-7.7); NEUT % 61 % (31-73); PLATELET COUNT 229 x10^3/uL (140-400); RED BLOOD COUNT 4.67 x10^6/uL (3.50-5.40); RED CELL DISTRIBUTION WIDTH 13.9 % (11.5-14.5); WHITE BLOOD COUNT 8.8 x10^3/uL (4.0-11.0)
[2019-07-22 06:37] LABS: ALBUMIN 3.4 g/dL (3.4-5.0); ALBUMIN/GLOBULIN RATIO 1.1 (1.0-1.7); CALCIUM 9.3 mg/dL (8.5-10.1); CREATININE 1.1 mg/dL (0.6-1.0); GFR 47.1; POTASSIUM 4.1 mmol/L (3.5-5.1); TOTAL BILIRUBIN 0.4 mg/dL (0.2-1.0); TOTAL PROTEIN 6.5 g/dL (6.4-8.2)
[2019-07-22] MEDS: FLUoxetine HCL 10 MG CAPSULE PO SCH (08:38)
[2019-07-22] MEDS: CIPROFLOXACIN 0.3% OPHTH SOLUTION 2.5ML BOTTLE. OU SCH ×3 (08:38→20:08)
[2019-07-22] MEDS: GLIMEPIRIDE 2 MG TABLET PO SCH (08:38)
[2019-07-22] MEDS: LISINOPRIL 10 MG TABLET PO SCH (08:38)
[2019-07-22] MEDS: LINAGLIPTIN 5 MG TABLET PO SCH (08:38)
[2019-07-22] MEDS: metFORMIN 500 MG TABLET PO SCH (08:38)
[2019-07-22 16:13] VITALS: BP 113/69
[2019-07-22] MEDS: risperiDONE 0.25 MG TABLET. PO SCH (20:08)
[2019-07-22] MEDS: MIRTAZAPINE 7.5 MG TABLET. PO SCH (20:08)
--- NOTE | 2019-07-22 20:59 | PDOC ---
Exam Note: Bryan Note: Please also refer to the separate dictated note~for this date of service dictated separately.~Patient seen individually. Discussed the patient with Nursing staff reviewed the chart.~Reviewed interim history and current functioning. Reviewed vital signs,~Labs/ Radiology~and current medications noted below. Continue current treatment with the changes noted in the dictated addendum note Assessment: Vital Signs/I&O: Vital Signs Date Time Temp Pulse Resp B/P (MAP) Pulse Ox O2 Delivery O2 Flow Rate FiO2 07/22/19 16:13 98.0 88 18 113/69 (84) 97 07/16/19 16:10 Room Air I & O 07/21/19 07/21/19 07/22/19 15:00 23:00 07:00 Intake Total 240 ml 120 ml Balance 240 ml 120 ml Labs: Laboratory Tests Test 07/22/19 06:00 07/22/19 08:08 White Blood Count 8.8 x10^3/uL (4.0-11.0) Red Blood Count 4.67 x10^6/uL (3.50-5.40) Hemoglobin 14.2 g/dL (12.0-15.5) Hematocrit 42.9 % (36.0-47.0) Mean Corpuscular Volume 92 fL (79-100) Mean Corpuscular Hemoglobin 30 pg (25-35) Mean Corpuscular Hemoglobin Concent 33 g/dL (31-37) Red Cell Distribution Width 13.9 % (11.5-14.5) Platelet Count 229 x10^3/uL (140-400) Neutrophils (%) (Auto) 61 % (31-73) Lymphocytes (%) (Auto) 28 % (24-48) Monocytes (%) (Auto) 9 % (0-9) Eosinophils (%) (Auto) 2 % (0-3) Basophils (%) (Auto) 1 % (0-3) Neutrophils # (Auto) 5.4 x10^3uL (1.8-7.7) Lymphocytes # (Auto) 2.4 x10^3/uL (1.0-4.8) Monocytes # (Auto) 0.7 x10^3/uL (0.0-1.1) Eosinophils # (Auto) 0.2 x10^3/uL (0.0-0.7) Basophils # (Auto) 0.1 x10^3/uL (0.0-0.2) Sodium Level 146 mmol/L (136-145) H Potassium Level 4.1 mmol/L (3.5-5.1) Chloride Level 110 mmol/L (98-107) H Carbon Dioxide Level 26 mmol/L (21-32) Anion Gap 10 (6-14) Blood Urea Nitrogen 37 mg/dL (7-20) H Creatinine 1.1 mg/dL (0.6-1.0) H Estimated GFR (Cockcroft-Gault) 47.1 BUN/Creatinine Ratio 34 (6-20) H Glucose Level 107 mg/dL (70-99) H Calcium Level 9.3 mg/dL (8.5-10.1) Total Bilirubin 0.4 mg/dL (0.2-1.0) Aspartate Amino Transferase (AST) 27 U/L (15-37) Alanine Aminotransferase (ALT) 36 U/L (14-59) Alkaline Phosphatase 76 U/L (46-116) Total Protein 6.5 g/dL (6.4-8.2) Albumin 3.4 g/dL (3.4-5.0) Albumin/Globulin Ratio 1.1 (1.0-1.7) Glucose (Fingerstick) 107 mg/dL (70-99) H Current Medications: I have reviewed the current psychotropics carefully including drug interactions. Risk benefit ratio favors no change other than as noted in my dictated progress note. Diagnosis: Problems: (1) Anxiety disorder (2) Major depressive disorder, recurrent episode (3) Psychosis, atypical (4) Psychotic depression RODRIGO NORTON MD Jul 22, 2019 20:58
--- NOTE | 2019-07-22 22:37 | PN ---
DATE: 07/21/2019 PSYCHIATRIC PROGRESS NOTE This late entry 07/21/2019 covers elements not covered in my initial note. SUBJECTIVE: I met with the patient evening of 07/21/2019. Overall, patient remains somewhat withdrawn, isolated, paranoid, not very verbally interactive, quite hesitant as I sat with her at some length trying to get her to talk. Nursing staff had called me the previous evening, she was not sleeping and we initiated Remeron and trazodone around 10:45 p.m. and also added Zyprexa 1.25 mg q. 2 hours p.r.n. psychosis, agitation, max 7.5 in 24 hours for her paranoia, irritability at times. REVIEW OF SYSTEMS: No CV, , pulmonary, eye, ENT system symptoms on review. Reliability poor. MENTAL STATUS EXAM: Oriented to herself and situation. Speech fluent, rate and rhythm, low in volume, often responses monosyllabic. Abstraction fair, computation impaired, language function intact. Mood and affect withdrawn. LABORATORY DATA: Reviewed. IMPRESSION: Major depressive disorder with psychotic features; mild cognitive impairment. Rest unchanged. PLAN: Continue psychotropics from initial note. Prozac, Risperdal along with Remeron and trazodone and Zyprexa p.r.n. RODRIGO NORTON MD DR: SANDY/diane JOB#: [id number] / [id number]
[2019-07-23 05:48] VITALS: BP 97/51
[2019-07-23] MEDS: LISINOPRIL 10 MG TABLET PO SCH (09:00)
[2019-07-23] MEDS: CIPROFLOXACIN 0.3% OPHTH SOLUTION 2.5ML BOTTLE. OU SCH ×3 (10:30→21:18)
[2019-07-23] MEDS: LINAGLIPTIN 5 MG TABLET PO SCH (10:30)
[2019-07-23] MEDS: GLIMEPIRIDE 2 MG TABLET PO SCH (10:30)
[2019-07-23] MEDS: FLUoxetine HCL 10 MG CAPSULE PO SCH (10:31)
[2019-07-23] MEDS: metFORMIN 500 MG TABLET PO SCH (10:31)
[2019-07-23 15:50] VITALS: BP 109/73
--- NOTE | 2019-07-23 20:43 | PDOC ---
Exam Note: Bryan Note: Please also refer to the separate dictated note~for this date of service dictated separately.~Patient seen individually. Discussed the patient with Nursing staff reviewed the chart.~Reviewed interim history and current functioning. Reviewed vital signs,~Labs/ Radiology~and current medications noted below. Continue current treatment with the changes noted in the dictated addendum note Assessment: Vital Signs/I&O: Vital Signs Date Time Temp Pulse Resp B/P (MAP) Pulse Ox O2 Delivery O2 Flow Rate FiO2 07/23/19 15:50 98.9 71 16 109/73 (85) 94 I & O 07/22/19 07/22/19 07/23/19 15:00 23:00 07:00 Intake Total 840 ml 580 ml Balance 840 ml 580 ml Labs: Laboratory Tests Test 07/23/19 07:26 Glucose (Fingerstick) 117 mg/dL (70-99) H Current Medications: I have reviewed the current psychotropics carefully including drug interactions. Risk benefit ratio favors no change other than as noted in my dictated progress note. Diagnosis: Problems: (1) Anxiety disorder (2) Major depressive disorder, recurrent episode (3) Psychosis, atypical (4) Psychotic depression RODRIGO NORTON MD Jul 23, 2019 20:43
[2019-07-23] MEDS: MIRTAZAPINE 7.5 MG TABLET. PO SCH (21:10)
[2019-07-23] MEDS: risperiDONE 0.25 MG TABLET. PO SCH (21:10)
--- NOTE | 2019-07-23 21:27 | PN ---
DATE: 07/22/2019 PSYCHIATRIC PROGRESS NOTE This late entry 07/22/2019 covers elements not covered in my initial note. SUBJECTIVE: I met with the patient in the evening. Per HAKAN Guo, the patient slept 6-1/4 hours previous night. She is resistive to medication, tearful in the morning, took her medications, later in the day, much faster than the 45 minutes. It took the nursing staff couple of days back to administer her medications. It took just about 10 minutes on 07/22/2019. She remains on the Cipro eyedrops, a little more verbally interactive, both for the nursing staff and myself. REVIEW OF SYSTEMS: No CV, , pulmonary, eye system symptoms on review. MENTAL STATUS EXAM: Oriented to herself and situation. Speech is coherent, has some latency. Abstraction fair, computation impaired, language function intact. Mood and affect still withdrawn, somewhat paranoid, less so than before. LABORATORY DATA: Reviewed. IMPRESSION: Major depressive disorder, recurrent with psychotic features, mild cognitive impairment. Rest unchanged. PLAN: No change from initial note. Continue current psychotropics, unchanged including Remeron and trazodone, which were added and adjusted on Prozac, Risperdal at current dosage. RODRIGO NORTON MD DR: SANDY/diane JOB#: [id number] / [id number]
[2019-07-24 06:09] VITALS: BP 121/74
[2019-07-24] MEDS: GLIMEPIRIDE 2 MG TABLET PO SCH (08:16)
[2019-07-24] MEDS: CIPROFLOXACIN 0.3% OPHTH SOLUTION 2.5ML BOTTLE. OU SCH ×2 (08:16→14:00)
[2019-07-24] MEDS: FLUoxetine HCL 10 MG CAPSULE PO SCH (08:17)
[2019-07-24] MEDS: LISINOPRIL 10 MG TABLET PO SCH (08:17)
[2019-07-24] MEDS: LINAGLIPTIN 5 MG TABLET PO SCH (08:17)
[2019-07-24] MEDS: metFORMIN 500 MG TABLET PO SCH (08:17)
[2019-07-24 15:51] VITALS: BP 104/64
[2019-07-24] MEDS: MIRTAZAPINE 7.5 MG TABLET. PO SCH (20:44)
[2019-07-24] MEDS: risperiDONE 0.25 MG TABLET. PO SCH (20:44)
--- NOTE | 2019-07-24 23:40 | PN ---
DATE: 07/23/2019 PSYCHIATRIC PROGRESS NOTE This late entry 07/23/2019 covers the elements not covered in my initial note. SUBJECTIVE: I met with the patient in the evening of 07/23/2019. Per HAKAN Humphries, the patient slept 6-1/4 hours previous evening. She has been less resistive to medications coming out more to the day room. She talked about the anniversary of her and it has been 3 years. REVIEW OF SYSTEMS: No CV, , pulmonary, eye, ENT system symptoms on review. Reliability poor. MENTAL STATUS EXAM: Oriented to herself and situation. Speech moderate latency, low in rate and rhythm, low in volume, often responses monosyllabic. Abstraction fair, computation impaired, and language function intact. She is still paranoid, less so than before. Still depressed, but improved. LABORATORY DATA: Reviewed. IMPRESSION: Major depressive disorder with psychotic features; mild cognitive impairment. Rest unchanged. PLAN: No change from initial note. RODRIGO NORTON MD DR: SANDY/diane JOB#: [id number] / [id number]
--- NOTE | 2019-07-25 00:05 | PN ---
DATE: 07/24/2019 SUBJECTIVE: The patient was seen today, met with the staff, chart reviewed, also covering for Dr. Reynoso. The patient continues to show increased confusion, refusing her meds and also refusing to eat. The patient also irritable and house. OBSERVATION: VITAL SIGNS: Temperature 97.6, blood pressure 121/74, pulse 81, respirations 18, O2 sat 96%. Slept about 7 hours last night. The patient's appetite is fair. LABORATORY DATA: The patient's lab reviewed. MEDICATIONS: The patient's current medications include olanzapine 1.25 mg q. 2 hours p.r.n., mirtazapine 7.5 mg at night, trazodone 50 mg at night p.r.n., Prozac 10 mg daily, Risperdal 0.125 mg at night. The patient is not having any side effects to medications. ASSESSMENT: Psychotic disorder, unspecified; major depression with psychotic features; mild cognitive impairment. PLAN: Continue with the current treatment plan. LENGTH OF STAY: 5-7 days. ROSEMARY MICHAEL MD DR: INA/diane JOB#: [id number] / [id number]
[2019-07-25 06:10] VITALS: BP 119/58
[2019-07-25] MEDS: FLUoxetine HCL 10 MG CAPSULE PO SCH (09:56)
[2019-07-25] MEDS: CHOLECALCIFEROL (VITAMIN D3) 50,000 UNIT CAPSULE PO SCH (09:57)
[2019-07-25] MEDS: LINAGLIPTIN 5 MG TABLET PO SCH (09:57)
[2019-07-25] MEDS: GLIMEPIRIDE 2 MG TABLET PO SCH (09:57)
[2019-07-25] MEDS: LISINOPRIL 10 MG TABLET PO SCH (09:57)
[2019-07-25] MEDS: metFORMIN 500 MG TABLET PO SCH (09:59)
[2019-07-25 10:00] VITALS: BP 127/79
--- NOTE | 2019-07-25 16:01 | DS ---
DATE OF DISCHARGE: 07/25/2019 FINAL DIAGNOSES: AXIS I: 1. Major depressive disorder with psychotic features. 2. Mild cognitive impairment. AXIS II: None. AXIS III: Diabetes mellitus, hypertension, diverticulitis, recent fall with laceration on the occipital region of the scalp. REASON FOR ADMISSION: This 84-year-old female was admitted to inpatient program at [facility] from [facility] because of increased confusion, noncompliance with the treatment, refusing her medications and apparently lost about 20 pounds weight loss in the last month. The patient is also getting increasingly confused, obsessed with cleanliness and also getting paranoid and suspicious. The patient also had acute dehydration on admission. HISTORY OF PRESENT ILLNESS: The patient is able to orient herself, but beginning to show some cognitive deficits, increasing paranoia, obsessive compulsive behaviors, increased anxiety and depression. The patient is also losing weight and also not sleeping well. HOSPITAL COURSE: The patient was involved in treatment including individual therapy, group therapy, and activity therapy. The patient was on Zyprexa 1.25 mg daily, mirtazapine 7.5 mg at night, trazodone 50 mg at bedtime p.o. p.r.n. for insomnia, Prozac 10 mg daily, Risperdal 0.125 mg at night. The patient was also on B12, vitamin D, Tradjenta 5 mg daily, lisinopril 10 mg daily, Amaryl 2 mg daily, metformin 1000 mg daily, calcium carbonate 500 mg, also Tylenol p.r.n. The patient during activity fell, hit her head and apparently she had a fairly good size laceration on the occipital region of the skull and she was transported to the Emergency Department for further evaluation and treatment. ROSEMARY MICHAEL MD DR: INA/diane JOB#: [id number] / [id number]
[2019-07-25] MEDS ORDERED: RISP0.5T24 PO (18:21)
[2019-07-25] MEDS ORDERED: OLAN5TAB5 PO (18:21)
[2019-07-25] MEDS ORDERED: TRAZ-120 PO (18:21)
[2019-07-25] MEDS ORDERED: MIRT15TA PO (18:21)
[2019-07-26] MEDS ORDERED: MIRT7.5T8 PO (19:37)
== END 2019-07-25 11:20 | disposition short-term general hospital (02) | DRG 885 ==
LOC: GEROPSY 17:45
PROVIDERS: ADMIT Psychiatry & Neurology Psychiatry; ATTEND Psychiatry & Neurology Psychiatry
DX: F33.3 Major depressive disorder, recurrent, severe with psychotic symptoms (principal); K57.92 Diverticulitis of intestine, part unspecified, without perforation or abscess without bleeding; G30.9 Alzheimer's disease, unspecified; F01.50 Vascular dementia, unspecified severity, without behavioral disturbance, psychotic disturbance, mood disturbance, and anxiety; E11.9 Type 2 diabetes mellitus without complications; F02.80 Dementia in other diseases classified elsewhere, unspecified severity, without behavioral disturbance, psychotic disturbance, mood disturbance, and anxiety; F41.9 Anxiety disorder, unspecified; I10 Essential (primary) hypertension; Z66 Do not resuscitate; Z79.899 Other long term (current) drug therapy; Z91.19 Patient's noncompliance with other medical treatment and regimen
CPT/HCPCS: 36415; 80053; 80061; 82306; 82607; 82947; 83036; 83540; 83550; 83735; 84436; 84443; 84480; 85025; 86592; J3420; 97110; 97530; 97535

== ENCOUNTER 2019-07-25 11:32 | Emergency (ER) | payer MEDICARE ==
[~2019-07-25] VITALS: Ht 157.5 cm; Wt 57.3 kg
[~2019-07-25 11:32] MED LIST: ACET325T9 PO; CALC500T31 PO; GLIM2TAB3 PO; LISI10TA2 PO; METF10007 PO; ONDA4TAB7 PO; SERT50TA PO; SITA50TA PO
--- NOTE | 2019-07-25 11:44 | PHYS DOC ---
Past History Past Medical History: Dementia, Diabetes, Hypertension Smoking: Non-smoker Adult General Chief Complaint Chief Complaint: MECHANICAL FALL HPI HPI Patient is an 84-year-old female who presents to the emergency department via EMS, from the [facility], where she has been a patient for the past 2 weeks, due to dementia with behavioral disturbances. According to report, she was engaged in a physical/exercise activity, with other residents, when she lost her balance and fell backwards striking her head. She did develop a wound on her head, and EMS has applied a cervical collar. There was no reported loss of consciousness and review of the patient's medication record does not reveal that she takes any blood thinners. She denies any focal pain, but is somewhat of a limited historian. There are no alleviating or exacerbating factors to her symptoms otherwise. Review of Systems Review of Systems Unable to obtain review of systems, secondary to underlying dementia Allergies Allergies Allergies Coded Allergies Type Severity Reaction Last Updated Verified No Known Drug Allergies 07/14/19 No Physical Exam Physical Exam PHYSICAL EXAM: CONSTITUTIONAL: Well developed, well nourished HEAD: normocephalic, there is a wound on the posterior scalp, mostly obscured by cervical collar, otherwise the cranium appears atraumatic EENT: PERRL, EOMI. Conjunctivae normal color, sclerae non-icteric; moist mucous membranes. NECK: A cervical collar is in place. LUNGS: Lungs CTA, breathing even and unlabored. Normal air movement. HEART: Regular rate and rhythm, no murmur CHEST: No deformity; non-tender ABDOMEN: The abdomen is soft, and non-tender, no masses or bruits. EXTREM: Normal ROM; no deformity, no calf tenderness. Normal pulses palpable in all extremities. There is no pedal edema. The hips and pelvis are nontender, with normal range of motion. The remainder the extremities appear atraumatic. SKIN: No rash; no diaphoresis NEURO: Alert; normal speech, impaired cognition consistent with underlying dementia; CN's grossly intact; strength grossly intact without focal deficit. BACK: No CVA TTP.There is no bony tenderness to palpation of the thoracic or lumbar spine. EKG EKG [] Radiology/Procedures Radiology/Procedures PROCEDURE: CT HEAD AND CERVICAL SPINE WO CT Head without contrast 07/25/2019 11:36 AM Indication: Fall, head pain. Comparison: None Findings: No intracranial hemorrhage is seen. No evidence of acute territorial infarct is seen. Note that CT is limited in sensitivity for acute ischemia. Age-related atrophic changes are noted. There is patchy periventricular and deep white matter hypoattenuation which is nonspecific, but most commonly relates to chronic small vessel disease. No abnormal extra axial fluid collection is identified. No mass effect or midline shift is seen. No acute osseous abnormalities are seen. Impression: 1. No acute intracranial process identified 2. Age-related atrophy, and evidence of chronic small vessel disease as described CT cervical spine without contrast. 07/25/2019 11:36 AM Indication:Fall. Neck pain. Comparison Study: None Technique: Multidetector CT imaging of the cervical spine was obtained without administration of contrast. Findings: There is no evidence of acute fracture or alignment abnormality of the cervical spine. Vertebral body heights are maintained. Mild degenerative disc space narrowing is noted at C5-C7. The atlantoaxial articulation remains intact. There is no prevertebral soft tissue swelling. Soft tissues are otherwise unremarkable. No bony compromise of the spinal canal is seen. Impression: No evidence of acute fracture or alignment abnormality of the cervical spine [] Course & Med Decision Making Course & Med Decision Making Pertinent Labs and Imaging studies reviewed. (See chart for details) []The patient's cervical collar was removed, there is no midline cervical spinal tenderness to palpation. LACERATION REPAIR: There was a 4 cm laceration on the posterior scalp, which was irrigated copiously with normal saline, anesthetized with 1% lidocaine with epinephrine, and sterile technique was used. There was some nonviable skin, which was removed from the wound, and the wound margins revised. The wound was closed with #5 surgical giovanny, good epithelial approximation was obtained.. Dragon Disclaimer Dragon Disclaimer This electronic medical record was generated, in whole or in part, using a voice recognition dictation system. Departure Departure: Impression: Primary Impression: Scalp laceration Additional Impressions: Closed head injury Dementia Disposition: HOME, SELF-CARE (back to [facility]) Condition: STABLE Referrals: PCP,UNKNOWN (PCP) Patient Instructions: Head Injury, Adult, Laceration Care, Adult Additional Instructions: Keep wound clean and dry, use may apply topical antibiotic ointment to the affected area twice daily. Staple removal in 7-10 days. Problem Qualifiers FELICIANO STEWARD MD Jul 25, 2019 11:44
--- NOTE | 2019-07-25 12:13 | RAD ---
CT Head without contrast 07/25/2019 11:36 AM Indication: Fall, head pain. Comparison: None Findings: No intracranial hemorrhage is seen. No evidence of acute territorial infarct is seen. Note that CT is limited in sensitivity for acute ischemia. Age-related atrophic changes are noted. There is patchy periventricular and deep white matter hypoattenuation which is nonspecific, but most commonly relates to chronic small vessel disease. No abnormal extra axial fluid collection is identified. No mass effect or midline shift is seen. No acute osseous abnormalities are seen. Impression: 1. No acute intracranial process identified 2. Age-related atrophy, and evidence of chronic small vessel disease as described CT cervical spine without contrast. 07/25/2019 11:36 AM Indication:Fall. Neck pain. Comparison Study: None Technique: Multidetector CT imaging of the cervical spine was obtained without administration of contrast. Findings: There is no evidence of acute fracture or alignment abnormality of the cervical spine. Vertebral body heights are maintained. Mild degenerative disc space narrowing is noted at C5-C7. The atlantoaxial articulation remains intact. There is no prevertebral soft tissue swelling. Soft tissues are otherwise unremarkable. No bony compromise of the spinal canal is seen. Impression: No evidence of acute fracture or alignment abnormality of the cervical spine CT DOSING PQRS STATEMENT: One or more of the following individualized dose reduction techniques were utilized for this examination: 1. Automated exposure control 2. Adjustment of the mA and/or kV according to patient size 3. Use of iterative reconstruction technique Electronically signed by: Nilesh Mirza MD (07/25/2019 12:10 PM) [facility]
[2019-07-25] MEDS ORDERED: ONDANSETRON ODT 4 MG TAB.RAPDIS PO ONE (12:30)
[2019-07-25] MEDS ORDERED: LIDOCAINE 1%/EPI 1:100,000 20 ML VIAL. IJ ONE (12:30)
[2019-07-25] MEDS ORDERED: DIPHTH,PERTUSS(ACELL),TET TOX 0.5 ML DISP.SYRIN. VAX IM ONE (12:45)
[2019-07-25] MEDS ORDERED: MAGNESIUM HYDROXIDE 2,400 MG/30 ML ORAL.SUSP. PO PRN (15:15)
[2019-07-25] MEDS ORDERED: METHYL SALICYLATE/MENTHOL TOPICAL OINTMENT 57GM TUBE. TP PRN (15:15)
[2019-07-25] MEDS ORDERED: ACETAMINOPHEN 325 MG TABLET PO PRN ×2 (15:15→16:15)
[2019-07-25] MEDS ORDERED: MAG HYDROX/AL HYDROX/SIMETH 30 ML ORAL.SUSP PO PRN (15:15)
[2019-07-25 16:07] VITALS: BP 139/79
[2019-07-25] MEDS ORDERED: ONDANSETRON ODT 4 MG TAB.RAPDIS PO PRN (16:15)
[2019-07-25] MEDS ORDERED: CALCIUM CARBONATE 500 MG TABLET PO PRN (16:15)
[2019-07-25] MEDS ORDERED: traZODone 50 MG TABLET. PO PRN (18:15)
[2019-07-25] MEDS ORDERED: OLAN5TAB5 PO (18:21)
[2019-07-25] MEDS ORDERED: RISP0.5T24 PO (18:21)
[2019-07-25] MEDS ORDERED: MIRT15TA PO (18:21)
[2019-07-25] MEDS ORDERED: TRAZ-120 PO (18:21)
[2019-07-25 20:43] LABS: BACTERIA,URINE FEW /HPF (0-FEW); BILIRUBIN,URINE NEG (NEG); CLARITY,URINE HAZY; COLOR,URINE YELLOW; GLUCOSE,URINE NEG (NEG); NITRITE,URINE NEG (NEG); RBC,URINE OCC /HPF (0-2); SQUAMOUS EPITHELIAL CELL,UR OCC /LPF; UROBILINOGEN,URINE 0.2 mg/dL (0.2 mg/dL)
[2019-07-25 20:44] LABS: HYALINE CASTS, URINE OCC /HPF
[2019-07-25] MEDS ORDERED: MIRTAZAPINE 7.5 MG TABLET. PO SCH (21:00)
[2019-07-25] MEDS ORDERED: risperiDONE 0.25 MG TABLET. PO SCH (21:00)
--- NOTE | 2019-07-25 21:34 | PSYEV ---
DATE OF SERVICE: 07/25/2019 REASON FOR ADMISSION: This 84-year-old female who was an inpatient on the [facility] since 07/14/2019, had to be sent to the ER following a fall on 07/25/2019 and apparently she fell on her back and hit her back of her head. Apparently, she has a fairly large laceration with bleeding and she was transported to the Emergency Department for further observation and treatment. The patient was kept there for about less than 6 hours and returned to the unit. Please refer to information with regard to psychosocial assessment and the medication she was treated on and also the lab work. The patient while she was in the ED had CT scan of the skull and also spine and did not show any acute abnormality. The patient did not lose consciousness. The patient apparently complaining of pain. MENTAL STATUS EXAMINATION Upon return to the unit, the patient was staying in bed, somewhat confused, irritable, and the patient is complaining of pain in her head and neck. The patient had difficulty with her speech at times. Most of the answers were monosyllabic. The patient also showed generalized anxiety, but no panic attacks. Her affect and mood showed she was somewhat suspicious, confused and not able to complete the sentence. The patient is also having difficulty with her thought process. The patient denied of any visual or auditory hallucinations at this time. The patient is disoriented to surroundings. Memory is impaired for both past and present. Judgment impaired. Insight minimal. ADMITTING DIAGNOSES: AXIS I: 1. Major depression with psychotic features. 2. Cognitive disorder, unspecified. AXIS II: None. AXIS III: Diabetes mellitus, hypertension, diverticulitis and recent fall with no major injuries except for laceration on the skull. INITIAL TREATMENT PLAN: The patient was readmitted to the unit. The patient had a complete lab work on the previous admission here. The patient's medications included Prozac 10 mg daily, Risperdal 0.125 mg at night, Remeron 7.5 mg at night, trazodone 50 mg at night p.r.n. The patient will be encouraged to attend all the activities. LENGTH OF STAY: 5-7 days. ROSEMARY MICHAEL MD DR: INA/diane JOB#: [id number] / [id number]
[2019-07-26 07:21] VITALS: BP 93/49
[2019-07-26] MEDS ORDERED: metFORMIN 500 MG TABLET PO SCH (08:00)
[2019-07-26 09:00] VITALS: BP 93/49
[2019-07-26] MEDS ORDERED: LINAGLIPTIN 5 MG TABLET PO SCH (09:00)
[2019-07-26] MEDS ORDERED: LISINOPRIL 10 MG TABLET PO SCH (09:00)
[2019-07-26] MEDS ORDERED: GLIMEPIRIDE 2 MG TABLET PO SCH (09:00)
[2019-07-26] MEDS ORDERED: SERTRALINE 50 MG TABLET. PO SCH (09:00)
[2019-07-26] MEDS ORDERED: MIRT7.5T8 PO (19:37)
== END 2019-07-25 13:40 | disposition home or self-care (01) ==
LOC: ER 11:32 → GEROPSY 14:47 → UNDOADMIN 14:47
DX: S01.01XA Laceration without foreign body of scalp, initial encounter (principal); F03.91 Unspecified dementia, unspecified severity, with behavioral disturbance; E11.9 Type 2 diabetes mellitus without complications; I10 Essential (primary) hypertension; W18.09XA Striking against other object with subsequent fall, initial encounter; Y93.B9 Activity, other involving muscle strengthening exercises; Y92.89 Other specified places as the place of occurrence of the external cause; Y99.8 Other external cause status
CPT/HCPCS: 90471; 90715; 99285; Q0162; 70450; 72125; 81001; 82947; 87086

== ENCOUNTER 2019-07-25 14:47 | Inpatient (IN) | payer MEDICARE ==
[~2019-07-25] VITALS: Ht 157.5 cm; Wt 55.1 kg
[2019-07-25] MEDS ORDERED: TRAZ-120 PO (18:21)
[2019-07-25] MEDS ORDERED: MIRT15TA PO (18:21)
[2019-07-25] MEDS ORDERED: OLAN5TAB5 PO (18:21)
[2019-07-25] MEDS ORDERED: RISP0.5T24 PO (18:21)
[2019-07-26] MEDS ORDERED: MAGNESIUM HYDROXIDE 2,400 MG/30 ML ORAL.SUSP. PO PRN (12:15)
[2019-07-26] MEDS ORDERED: ACETAMINOPHEN 325 MG TABLET PO PRN ×2 (12:15→12:30)
[2019-07-26] MEDS ORDERED: METHYL SALICYLATE/MENTHOL TOPICAL OINTMENT 57GM TUBE. TP PRN (12:15)
[2019-07-26] MEDS ORDERED: MAG HYDROX/AL HYDROX/SIMETH 30 ML ORAL.SUSP PO PRN (12:15)
--- NOTE | 2019-07-26 12:22 | NUR ---
PSYCHOSOCIAL ASSESSMENT ADMISSION DATE: 07/25/19 CONTACT INFORMATION: DPOA/Guardian Contact Name: VENU Acuna Contact Address: [address] Contact Phone #: [phone] ETHNIC ORIGIN: REASONS FOR ADMISSION: Anxiety/Panic, Confusion/Disoriented, Sig. Change Appetite, and Suspicious/paranoid ADDITIONAL ADMISSION COMMENTS: Per pt. intake, pt. family brought her to the ED for increased confusion, not taking medication at home, 20 lb. weight loss in one month, increased anxiety, example - fearful mice will get in her house with two dishes being left in the sink, fixated on not having enough shoes when she has 25 pair, and increased paranoia - someone may steal her money. REASON FOR ADMISSION IN PATIENT/FAMILY'S OWN WORDS: Per pt., "Well, that's the problem, I don't know." Per pt. daughter, pt. wasn't taking her medications correctly and was paranoid pt. daughter was not giving her the right medications. PATIENT/FAMILY EXPECTATIONS FOR ADMISSION: Per pt., "I guess to get some help." "They are doing everything they can." Pt. daughter would like to figure out what is going on, as she reports "everything was fine" 2 1/2 weeks ago. LIVING SITUATION: Patient lives with: Alone [facility] Contact Address: [address] Contact Phone #: Contact Fax #: FAMILY RELATIONS: Marital Status: # of Marriages: 1 According to pt. her , Teodoro, in 2015. # of Children: 4 Pt. has four children Nirali, Marylin, Ramon, and Marco. Pt. daughter shared all four children were adopted. [facility] Family Support: Concerned and Cooperative Additional Comments r/t Family: Pt. daughter, Nirali, would like to be contacted for treatment team. Nirali also reports the other children are "disengaged" because "they were so strict" when the children were growing up. SIGNIFICANT PSYCHIATRIC/MEDICAL HISTORY: Psychiatric/Treatment History: Per pt. intake pt. has anxiety. Per pt. daughter, pt. has no psychiatric diagnoses. Pertinent Family History: According to pt. daughter, pt. has no pertinent family history. HISTORICAL DATA: Childhood Environment: Pt. shared, "It was very good." Pt. grew up with her mother, father, one brother, and one sister. Psychological Abuse: None Drug Abuse History last 12 months: No PERSONAL HISTORY: Vocational history: Per pt., "I can't remember." Pt. 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 daughter, "Friends." Pt. daughter shared pt. is very "conservative." Sexual orientation: Heterosexual Educational Level: Pt. graduated from high school. Past/Present Interests/Hobbies: According to pt. daughter, pt. enjoys "reading the bible" and "baking." Financial support/resources: [employer] and [employer] Monthly income: $1000 Person handling finances: Nirali Martinez Do you have a history of legal problems: N Cultural considerations: No SOCIAL RELATIONSHIPS-CURRENT/PAST: Psychiatrist: None PCP: Dr. Reyes Counselor/Therapist: None [employer]: None Support Group: None Insurance Billing Specialist/Heel Top Lift Splitter: None Other relationships: None STRENGTHS & WEAKNESSES: Patient's strengths: Good family support and Ambulatory Patient's weaknesses: Increase confusion and anxiety. PRELIMINARY PLAN OF TREATMENT: Preliminary plan: Decrease Anxiety/Panic, Promote Coping Skill, Medication Stabilization, Monitor Med Effects, and Control abnormal behavior DISCHARGE PLANNING: Discharge planning/disposition: Pt. will be discharged to [facility] ADDITIONAL INFORMATION: Pt. was able to supply some of the information for this assessment. Pt. daughter, Nirali, was contacted for clarification and verification of the information. Pt. daughter, Nirali, shared she was taking pt. to get an echocardiogram and noticed pt. was not taking her medication correctly. Pt. did give up driving, by choice, when she moved to [place]. Pt. daughter reports pt. was very frugal, does not like cursing, and did not believe in drinking or dancing. Psychosocial copied and updated from pt. previous stay from 07/14/2019 to 07/25/2019.
[2019-07-26] MEDS ORDERED: traZODone 50 MG TABLET. PO PRN (12:30)
[2019-07-26] MEDS ORDERED: CALCIUM CARBONATE 500 MG TABLET PO PRN (12:30)
[2019-07-26] MEDS ORDERED: ONDANSETRON ODT 4 MG TAB.RAPDIS PO PRN (12:45)
[2019-07-26 13:20] LABS: BASO # 0.1 x10^3/uL (0.0-0.2); BASO % 1 % (0-3); EOS # 0.1 x10^3/uL (0.0-0.7); EOS % 1 % (0-3); HEMATOCRIT 43.4 % (36.0-47.0); HEMOGLOBIN 14.4 g/dL (12.0-15.5); LYMPH # 1.4 x10^3/uL (1.0-4.8); LYMPH % 12 % (24-48); MEAN CORPUSCULAR HEMOGLOBIN 30 pg (25-35); MEAN CORPUSCULAR HGB CONC 33 g/dL (31-37); MEAN CORPUSCULAR VOLUME 92 fL (79-100); MONO # 0.8 x10^3/uL (0.0-1.1); MONO % 7 % (0-9); NEUT # 9.4 x10^3uL (1.8-7.7); NEUT % 80 % (31-73); PLATELET COUNT 211 x10^3/uL (140-400); RED BLOOD COUNT 4.74 x10^6/uL (3.50-5.40); RED CELL DISTRIBUTION WIDTH 13.9 % (11.5-14.5); WHITE BLOOD COUNT 11.8 x10^3/uL (4.0-11.0)
[2019-07-26 13:38] LABS: ALBUMIN 3.5 g/dL (3.4-5.0); CALCIUM 9.2 mg/dL (8.5-10.1); CREATININE 1.2 mg/dL (0.6-1.0); GFR 42.6; MAGNESIUM 1.6 mg/dL (1.8-2.4); POTASSIUM 4.1 mmol/L (3.5-5.1); TOTAL BILIRUBIN 0.5 mg/dL (0.2-1.0); TOTAL PROTEIN 6.9 g/dL (6.4-8.2)
--- NOTE | 2019-07-26 16:00 | NUR ---
SHILPA met with pt. daughter, Nirali, regarding pt. discharge. Nirali shared her concerns regarding pt. recent fall. Nirali has requested a call from self contained behavior unit teacher, which SHILPA did pass on that information. SHILPA was given permission to contact and fax pt. information to [facility] at [facility] to prepare for discharge.
--- NOTE | 2019-07-26 16:14 | NUR ---
Pt found on floor in her bathroom on the floor sitting, leaning up against the wall, no witnesses to how this occurred. Pt vitals 127/76, HR-92, O2-97%. This nurse assessed pt, no wounds noted. Tolstoy intact. Data Manager notified. Pt will now be "line of sight" care. Dr Patel notified, no new orders.
[2019-07-26 16:28] VITALS: BP 105/70
--- NOTE | 2019-07-26 16:48 | NUR ---
Pt re-admitted yesterday after ER visit d/t fall she had yesterday. Admit note was entered, however registration entered wrong vs number so pt had to be re-admitted today. All admission requirements completed.
[2019-07-26] MEDS ORDERED: MIRT7.5T8 PO (19:37)
[2019-07-26] MEDS ORDERED: MIRTAZAPINE 15 MG TABLET PO SCH (21:00)
[2019-07-26] MEDS ORDERED: risperiDONE 0.5 MG TABLET. PO SCH (21:00)
--- NOTE | 2019-07-27 00:44 | PN ---
DATE: 07/26/2019 SUBJECTIVE: The patient was seen today, met with the staff, chart reviewed. The patient is less anxious and tense. The patient is still confused, having difficulty with concentration and thinking at times. The patient is not exhibiting any major mood swings. She is able to walk. The patient is resistive to take medications. The patient also has high level of anxiety and also fearful. The patient does not interact with the staff or residents. OBSERVATION: VITAL SIGNS: Temperature 97.4, blood pressure 139/89, pulse 102, respirations 18, O2 sat 95%. Slept about 7 hours last night. LABORATORY DATA: The patient's lab reviewed. MEDICATIONS: The patient's current medications include Zoloft 50 mg daily, Risperdal 0.125 mg at night, mirtazapine 7.5 mg at night, trazodone 50 mg at night. She is also on olanzapine 1.25 mg q.2 hours p.r.n. for agitation. ASSESSMENT: 1. Psychotic disorder, unspecified. 2. Cognitive disorder, unspecified. 3. Generalized anxiety disorder. PLAN: To continue with the treatment. The patient is planned for discharge on 07/30/2019. ROSEMARY MICHAEL MD DR: INA/diane JOB#: [id number] / [id number]
[2019-07-27 01:06] LABS: HEMOGLOBIN A1C 8.1 % (4.8-5.6)
--- NOTE | 2019-07-27 01:25 | CONS ---
DATE OF CONSULTATION: REASON FOR CONSULTATION: Medical management. HISTORY OF PRESENT ILLNESS: The patient is an 84-year-old female patient who apparently fell and apparently sustained laceration on the back of her head and discharged to Emergency Room where she had a CT scan of the head and her wound was cleaned and stapled and was readmitted to continue with inpatient psychiatric stabilization. The patient herself does not really give any useful information. Her CT scan showed no evidence of acute intracranial process identified. She has age-related atrophy and evidence of chronic small vessel disease as described. CT scan of her cervical spine showed no evidence of acute fracture or alignment abnormality of the cervical spine. Her scalp, she has about 4 cm laceration to posterior scalp, which was irrigated copiously with normal saline, anesthetized with 1% lidocaine and epinephrine and was stable and was read[facility] to [facility]. The patient herself is very demented and does not give any useful information. PAST MEDICAL HISTORY: Significant for type 2 diabetes, hypertension. PAST SURGICAL HISTORY: Unobtainable except for the fact that she has scalp laceration that was stapled. ALLERGIES: She has no known drug allergies. FAMILY HISTORY: Noncontributory. SOCIAL HISTORY: She lives at home. She does not smoke, drink alcohol or use any recreational drugs. REVIEW OF SYSTEMS: Unobtainable. MEDICATIONS: She is currently on following medications: She is on lisinopril 10 mg once a day, Tylenol 650 mg every 4 hours, mirtazapine 7.5 mg at bedtime, sertraline 50 mg daily, trazodone 50 mg at bedtime, olanzapine 1.25 mg every 2 hours, risperidone 0.125 mg at bedtime, calcium carbonate 500 mg 4 times a day, ondansetron 4 mg every 4 hours as needed, metformin 1000 mg daily, sitagliptin (Januvia) 50 mg daily, glimepiride 2 mg daily. PHYSICAL EXAMINATION: GENERAL: When I examined her today, she looked well and was clearly in no apparent respiratory distress. No pallor, jaundice, cyanosis or thyromegaly. No jugular venous distention. No lower limb edema. VITAL SIGNS: Her heart rate was 83, blood pressure was 93/49, temperature was 98.4, respiratory rate was 14 and oxygen saturation was 97%. HEAD, EYES, EARS, NOSE AND THROAT: Showed normocephalic, status post fall sustaining posterior scalp laceration that was stable. NECK: Supple. HEART: Showed normal first and second heart sounds. No gallop or murmur. CHEST: Clear to auscultation. No crepitation or rhonchi. ABDOMEN: Distended, soft, nontender. NEUROLOGIC: She was demented, but without any obvious lateralizing sign. LABORATORY WORK: Showed a white cell count of 11,800, hemoglobin 14.4, hematocrit 43, MCV 92 and platelet count 211,000. Her chemistry showed a serum sodium 142, potassium 4.1, chloride 107, bicarbonate 26, anion gap of 9, BUN 26, creatinine 1.2, estimated GFR was 157, calcium was 9.2, magnesium was 1.6. Total bilirubin, AST, ALT, alkaline phosphatase were normal. Total protein 6.9, albumin 3.5. ASSESSMENT AND PLAN: In summary, this is an 84-year-old female patient who apparently fell sustaining laceration that was irrigated on scalp and stapled. She was admitted on account of increased confusion, not taking her medications. She has lost 20 pounds in the last month. She has increased anxiety, fearful that mice will get into her house and she left two dishes at the sink, fixated on not having enough shoes, but how she has 25 pairs, obsessed with cleanliness. Generally medically she is overall stable. She was found to be deficient in vitamin B12 and vitamin D, which were both replenished. Thank you, Dr. Reynoso for allowing me to participate in the care of this patient. MIGUEL ANGEL CASTILLO MD DR: MANSOOR/diane JOB#: [id number] / [id number]
[2019-07-27 06:50] VITALS: BP 120/76
[2019-07-27] MEDS: metFORMIN 500 MG TABLET PO SCH (08:35)
[2019-07-27] MEDS: GLIMEPIRIDE 2 MG TABLET PO SCH (08:35)
[2019-07-27] MEDS: FLUoxetine HCL 10 MG CAPSULE PO SCH (08:35)
[2019-07-27] MEDS: LINAGLIPTIN 5 MG TABLET PO SCH (08:35)
[2019-07-27] MEDS ORDERED: SERTRALINE 50 MG TABLET. PO SCH (09:00)
[2019-07-27] MEDS ORDERED: LISINOPRIL 10 MG TABLET PO SCH (09:00)
--- NOTE | 2019-07-27 10:36 | NUR ---
Pt is calm, cooperative, and compliant with ADL's. She was questioning her medication and needed encouragement to take it. Pt made statements she needed the DrDesiree to figure out why she "felt like this" but could not give the nurse a specific example of how she felt. Sitting and standing bp taken: sitting-126/68 86, standing- 94/[address] Patel during rounds today. No agitation, no aggression, no hallucinations or delusions. Pt denies SI/HI.
[2019-07-27 10:44] LABS: THYROID STIM HORMONE (TSH) 1.673 uIU/mL (0.358-3.740)
--- NOTE | 2019-07-27 12:52 | NUR ---
orthostatic bp's sitting- 106/67, 90 standing- 94/55, 92 Dr. Patel was here for rounds and ordered CT of pts head per DPOA request. Lisinopril D/C'd.
[2019-07-27 15:59] VITALS: BP 109/70
--- NOTE | 2019-07-27 16:48 | RAD ---
Examination: CT HEAD WO CONTRAST History: Recurrent falls with scalp lacerations. Pain. Comparison/Correlation: 07/25/2019 CT head and cervical spine without contrast Findings: Axial images of the head were obtained without contrast. Atrophy and chronic ischemic changes white matter are present. No intracranial hemorrhage, midline shift, or mass effect. [place] are present involving the posterior right vertex of the scalp. No depressed fracture. Globes and optic nerves are unremarkable. Impression: No intracranial hemorrhage. PQRS Compliance Statement: One or more of the following individualized dose reduction techniques were utilized for this examination: 1. Automated exposure control 2. Adjustment of the mA and/or kV according to patient size 3. Use of iterative reconstruction technique Electronically signed by: Jaquan Reed MD (07/27/2019 4:46 PM) [facility]
--- NOTE | 2019-07-27 22:33 | PN ---
DATE: 07/27/2019 SUBJECTIVE: The patient was seen today, met with the staff, chart reviewed. The patient's behavior remains the same. Staff observed that the patient apparently having generalized weakness at times slumping to the floor. It happened after she returned from the ED, where she was evaluated for a recent fall. The patient is not able to provide much information and according to the staff, her blood pressure was bit low. The patient is prone to have falls and the patient's medications reviewed. OBSERVATION: VITAL SIGNS: Temperature 98.2, blood pressure 109/70, pulse 91, respirations 16, O2 sat 96%. She slept about 5 hours last night. The patient's appetite is fair. The patient needing assistance with the ADLs. The patient has significant problems with her cognition and also her communication. MEDICATIONS: The patient's current medications include Zoloft 50 mg daily, Risperdal 0.125 mg at night, mirtazapine 7.5 mg at night, trazodone 50 mg at night. She is also on olanzapine 1.25 mg q.2 hours p.r.n. for agitation. ASSESSMENT: 1. Psychotic disorder, unspecified. 2. Cognitive disorder, unspecified. 3. Generalized anxiety disorder. PLAN: To continue with the treatment. The patient is planned for discharge on 07/30/2019. ROSEMARY MICHAEL MD DR: INA/diane JOB#: [id number] / [id number]
--- NOTE | 2019-07-27 23:52 | NUR ---
Last evening pt sat quietly in day room. She had no meds due and has been cooperative with no behaviors.
--- NOTE | 2019-07-28 05:59 | NUR ---
Gurjit Martinez given for anxiety, pt talking about shoes, socks and worried about hearing aid which is in her ear. Med dissolved in small amount of water which she drank.
[2019-07-28 06:32] VITALS: BP 111/66
[2019-07-28] MEDS: metFORMIN 500 MG TABLET PO SCH (08:09)
[2019-07-28] MEDS: LINAGLIPTIN 5 MG TABLET PO SCH (08:09)
[2019-07-28] MEDS: GLIMEPIRIDE 2 MG TABLET PO SCH (08:09)
[2019-07-28] MEDS: FLUoxetine HCL 10 MG CAPSULE PO SCH (08:09)
--- NOTE | 2019-07-28 09:20 | NUR ---
Pt is alert and oriented X 4. No agitation, aggression, hallucinations or delusions. She states "my daughter brought me here because she thinks I am depressed, I'm not." She is compliant with her medication and assessment.
[2019-07-28 15:37] VITALS: BP 118/73
--- NOTE | 2019-07-28 21:13 | NUR ---
Nursing note: Patient sitting in day room at shift change, seems to be in good spirits. Patient was compliant with medication and cares. No behaviors noted. Will continue to monitor. Patient continue to be a 1 to 1 due to falls.
--- NOTE | 2019-07-28 23:22 | PN ---
DATE: 07/28/2019 SUBJECTIVE: The patient was seen today, met with the staff, chart reviewed. The patient apparently much calmer, less anxious, has not had any falls today. The patient still withdrawn, isolative, confused and also has problems with communication. OBSERVATION: VITAL SIGNS: Temperature 98.9, blood pressure 109/70, pulse 91, respirations 16, O2 sat 96%. GENERAL: The patient's sleep is fair and appetite improved. MEDICATIONS: The patient's current medications include Zoloft 50 mg daily, and mirtazapine was discontinued and also patient's Risperdal discontinued because of hypotension. ASSESSMENT: 1. Psychotic disorder, unspecified. 2. Cognitive disorder, unspecified. 3. Generalized anxiety disorder. PLAN: To continue with the treatment. LENGTH OF STAY: 3 days. ROSEMARY MICHAEL MD DR: INA/diane JOB#: [id number] / [id number]
[2019-07-29 06:03] VITALS: BP 108/66
[2019-07-29] MEDS: FLUoxetine HCL 10 MG CAPSULE PO SCH (08:14)
[2019-07-29] MEDS: LINAGLIPTIN 5 MG TABLET PO SCH (08:14)
[2019-07-29] MEDS: GLIMEPIRIDE 2 MG TABLET PO SCH (08:14)
[2019-07-29] MEDS: metFORMIN 500 MG TABLET PO SCH (08:14)
--- NOTE | 2019-07-29 09:36 | NUR ---
Pt is alert and oriented X 4. No agitation, aggression, hallucinations or delusions. She is compliant with her medication and assessment. She is downgraded to LOS as she is compliant with ambulating with staff assistance. Orthostatic bp's are as follows. sitting-111/65, 79. standing 107/69 93.
--- NOTE | 2019-07-29 11:57 | NUR ---
SHILPA spoke to pt. daughter, Nirali, who reports [facility] would like to assess pt. on 07/30/2019 at 9:30. SHILPA will share pt. paperwork with [facility] at that time.
[2019-07-29 15:44] VITALS: BP 112/69
--- NOTE | 2019-07-29 16:07 | EKG ---
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
--- NOTE | 2019-07-30 01:27 | PN ---
DATE: 07/29/2019 SUBJECTIVE: The patient was seen today, met with the staff, chart reviewed. The patient continues to show improvement. The patient needs attention to her ADLs, difficult to redirect. She is withdrawn most of the time, also showing decreased psychomotor activity. OBSERVATION: VITAL SIGNS: Temperature 97.8, blood pressure 108/66, pulse 80, respirations 22, O2 sat 95%. GENERAL: Slept about 7 hours last night. The patient's appetite is fair. LABORATORY DATA: The patient's lab reviewed. MEDICATIONS: The patient's current medications include Zoloft 50 mg daily, mirtazapine and Risperdal was discontinued. Since then, the patient seems to be much more alert. ASSESSMENT: 1. Psychotic disorder, unspecified. 2. Cognitive disorder, unspecified. 3. Generalized anxiety disorder. PLAN: To continue with the treatment. LENGTH OF STAY: 2-3 days. ROSEMARY MICHAEL MD DR: INA/diane JOB#: [id number] / [id number]
--- NOTE | 2019-07-30 01:45 | NUR ---
Pt has had no behaviors this shift, she sat quietly in the day room until going to bed and has been sleeping well tonight.
[2019-07-30 06:17] VITALS: BP 125/68
[2019-07-30] MEDS: LINAGLIPTIN 5 MG TABLET PO SCH (08:23)
[2019-07-30] MEDS: FLUoxetine HCL 10 MG CAPSULE PO SCH (08:23)
[2019-07-30] MEDS: metFORMIN 500 MG TABLET PO SCH (08:24)
[2019-07-30] MEDS: GLIMEPIRIDE 2 MG TABLET PO SCH (08:24)
--- NOTE | 2019-07-30 10:16 | NUR ---
Pt. was assessed by [facility], for possible placement.
--- NOTE | 2019-07-30 10:45 | NUR ---
Patient was immediately compliant with medications when they were given to her at breakfast. She remains LOS for safety r/t falls. Patient is calm, compliant and cooperative.
--- NOTE | 2019-07-30 11:21 | NUR ---
SHILPA contacted pt. daughter, Nirali, to discuss pt. assessment and pt. PCP. Nirali reports pt. PCP is Dr. Tania Reyes. SHILPA contacted Do at [facility] to relay this information.
[2019-07-30] MEDS ORDERED: CALCIUM CARBONATE 500 MG TAB.CHEW PO PRN (12:15)
[2019-07-30 16:05] VITALS: BP 109/54
--- NOTE | 2019-07-31 01:11 | PN ---
DATE: 07/30/2019 SUBJECTIVE: The patient was seen today, met with the staff, chart reviewed. The patient continues to show improvement, withdrawn, isolative, most of the time noncommunicative. She is also showing increased psychomotor retardation. OBSERVATION: VITAL SIGNS: Temperature 97.8, blood pressure 125/68, pulse 86, respirations 20, O2 sat 95%. GENERAL: Slept about 7 hours last night. The patient's appetite is fair. LABORATORY DATA: The patient's lab reviewed. MEDICATIONS: The patient's current medications include Zoloft 50 mg daily. ASSESSMENT: 1. Psychotic disorder, unspecified. 2. Cognitive disorder, unspecified. 3. Generalized anxiety disorder. PLAN: To continue with the treatment. LENGTH OF STAY: 4-5 days. ROSEMARY MICHAEL MD DR: INA/diane JOB#: [id number] / [id number]
--- NOTE | 2019-07-31 02:28 | NUR ---
Patient has been quiet and cooperative this shift. Last evening she sat in day room watching TV. When walking she has a more stable gait now and when talking to her her speech is much improved. No behaviors and since going to bed she has been sleeping well.
[2019-07-31 06:15] VITALS: BP 100/46
[2019-07-31] MEDS: LINAGLIPTIN 5 MG TABLET PO SCH (08:35)
[2019-07-31] MEDS: metFORMIN 500 MG TABLET PO SCH (08:35)
[2019-07-31] MEDS: GLIMEPIRIDE 2 MG TABLET PO SCH (08:35)
[2019-07-31] MEDS: FLUoxetine HCL 10 MG CAPSULE PO SCH (08:35)
--- NOTE | 2019-07-31 10:28 | NUR ---
Patient is calm and medication compliant. She takes her medications whole with water. She has not expressed any paranoid thoughts and is eating well at meals. She sits with peers and is interactive at times.
--- NOTE | 2019-07-31 11:04 | NUR ---
SW spoke to pt. daughter, Nirali, regarding discharge placement for pt. Nirali shared some of the facilities she plans to visit, as [facility] would only take pt. on respite to see how pt. would do at their facility. SW encouraged Nirali to look into [facility], as this is the level of care recommended. Pt. does have periods where she appears confused and requires prompting and encouragement at times.
[2019-07-31 16:59] VITALS: BP 117/63
--- NOTE | 2019-07-31 23:52 | NUR ---
Pt has been sitting calmly in dayroom all evening. Pt continues to be a LOS d/t falls. Pt A/O x4 and pleasant. Pt does not receive HS medication.
--- NOTE | 2019-07-31 23:58 | PN ---
DATE: SUBJECTIVE: The patient was seen today, met with the staff, chart reviewed. The patient's behavior slightly improved, still withdrawn, social isolation and also noncommunicative most of the time, continues to show marked psychomotor retardation. The patient has not shown any major behavior problems. OBSERVATION: VITAL SIGNS: Temperature 97.8, blood pressure 100/45, pulse is 79, respirations 20, O2 sat 95%. GENERAL: Slept about 7.5 hours last night. The patient's appetite decreased. NEUROLOGIC: The patient is indifferent to surroundings. The patient has significant problems with his executive functioning. The patient is not able to interact socially with the staff or residents. LABORATORY DATA: The patient's lab reviewed. CURRENT MEDICATIONS: Zoloft 50 mg daily. ASSESSMENT: 1. Psychotic disorder, unspecified. 2. Cognitive disorder, unspecified. 3. Generalized anxiety disorder. PLAN: To continue with the treatment. LENGTH OF STAY: 4-5 days. ROSEMARY MICHAEL MD DR: INA/diane JOB#: [id number] / [id number]
[2019-08-01 06:01] VITALS: BP 115/55
[2019-08-01] MEDS: LINAGLIPTIN 5 MG TABLET PO SCH (08:38)
[2019-08-01] MEDS: metFORMIN 500 MG TABLET PO SCH (08:38)
[2019-08-01] MEDS: FLUoxetine HCL 10 MG CAPSULE PO SCH (08:38)
[2019-08-01] MEDS: GLIMEPIRIDE 2 MG TABLET PO SCH (08:38)
--- NOTE | 2019-08-01 09:23 | TX PLAN ---
Interdisciplinary Tx Plan Admission Information Jul 25, 2019 at 14:47 Legal Status (on Admission): Voluntary, DPOA DPOA/Guardian Name: Nirali Martinez DPOA Contact Other Contact Name: [facility] Verified Code Status: DNR Allergies: Coded Allergies: No Known Drug Allergies (Unverified , 07/14/19) Estimated Length of Stay: 10 Diagnoses Primary Diagnosis: Psychosis Unspecified, MDD with Psychotic Features Reasons for Admission: Sig. Change Appetite, Anxiety/Panic, Suspicio us/paranoid, Confusion/Disoriented Problem in Patient's Words: Per pt., "Well, that's the problem, I don't know." Per pt. daugther, pt. wasn't taking her medications correctly and was paranoid pt. daughter was not giving her the right medications. Problems Active Problems: Per pt. intake, pt. family brought her to the ED for increased confusion, not taking medication at home, 20 lb. weight loss in one month, increased anxiety, example - fearful mice will get in her house with two dishes being left in the sink, fixated on not having enough shoes when she has 25 pair, and increased paranoia - someone may steal her money. Inactive Problems: Pt. is medication compliant with encouragement. Pt Strengths/Limitations Ability for Terry: Fair Cognitive Functioning/Ability: Fair Communication Skills/Ability: Fair Financial Resources: Fair Insight/Judgement: Poor Intellectual Ability: Fair Physical Health: Fair Social Skills: Fair Stability in Family: Fair Verbal Skills: Fair Discharge Criteria Discharge Criteria: Able meet basic life need, Able to meet health needs, OP monitor medical prob, Adequate arrangements @DC, Adequate self-care, Verbal commit med comply, Improved behavior, Improved mood/thought Other Discharge Comments: Pt. may need a higher level of care at time of discharge. Preliminary Discharge Plan Preliminary DC Plan: Current Living Arrange. Special Precautions Fall Risk: Low Initial D/C Plan Pt. may return to her [facility] at [facility], however, pt. may also require a higher level of care. Identified Discharge Needs: Follow up with PCP. Home Health if pt. returns home. Currently Utilized Resources Currently Utilized Resources/P: PCP Dr. Reyes Identified Problems/Hx/Goals Objectives/Short-Term Goals Short Term Goals: Control abnormal behavior, Dec. Anxiety/Panic, Medication Stabilization, Monitor Med Effects, Promote Coping Skill Short Term Goals in Patient's: Per pt., "I guess to get some help." "They are doing everything they can." Pt. daughter would like to figure out what is going on, as she reports "everything was fine" 2 1/2 weeks ago. Interventions/Frequency Staff Interventions/Frequency&: Psychiatrist - Daily Nursing - Daily SW - 3 Times Weekly RT - 3 Times Weekly History Vocational History: Per pt., "I can't remember." Pt. 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 Education: Pt. graduated from high school. Community Follow-up Pt. will need a follow up with PCP. Possible need for home health if pt. returns to her apartment. Treatment Plan Explained Patient/Director Fundraising had this treatment plan explained to him/her as indicated by the signature below and has been given the opportunity to ask questions and make suggestions: Date: Patient/Director Fundraising Signature: Patient/Director Fundraising Decline: No Additional Comments Pt. daughter, Nirali, would like to be contacted for treatment team. Status Update Update WEEKLY PROGRESS NOTE/TREATMENT TEAM UPDATE: Pt. continues to show slight improvement. Pt. is calm, quiet, and cooperative. Pt. is often withdrawn but will join groups when encouraged. Pt. struggles to communicate at times. Pt. has been medication complaint and cooperative with cares. Pt. has shown some decrease in psychomotor activity. Pt. will discharge when placement has been secured. RIC WAITE Aug 01, 2019 09:23
--- NOTE | 2019-08-01 11:10 | NUR ---
Patient has been compliant with morning medication for the last three days. She has taken it immediately during breakfast when it was given each day. Patient takes medications whole and prefers to take them with water. She is calm and has not voiced any delusions. She answers questions when asked but doesn't usually initiate conversations.
--- NOTE | 2019-08-01 12:28 | NUR ---
WEEKLY ACTIVITY THERAPY NOTE Date of Admission: 07/14/2019 Date of AT Assessment: 07/17/2019 Goal aimed: to increase engagement and socialization Initial Goal: Pt. will engage in three Activity Therapy groups or individual sessions before discharge. Weekly progress towards goal: achieved, 03/23 Group participation level: varied Weekly highlights: followed exercises on Monday morning, full participation in both groups on Monday Behaviors observed: sharing thoughts more clearly, decreased moments of anxiety, more redirectable, quiet Plan: change goal to: Pt. will participate in at least five Activity Therapy groups per week. Beneficial adaptations: writing on paper to express self
--- NOTE | 2019-08-01 13:33 | NUR ---
Activity Therapy Assessment Completed based on observation and notes as Pt. is unable to answer assessment questions at this time. Pt. ambulates independently and wears glasses. She has expressive aphasia and difficulty expressing needs. Pt. has been anxious, confused, tearful and had difficulty focusing since admission. Pt. rarely comes around group and is often withdrawn. According to Pt. VENU and daughter, Nirali, Pt. lives alone in [place] and has little contact with her children. She has four children, all adopted, and has been since 2016. 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 According to notes, Pt. enjoys reading the Bible and baking. Pt. is very conservative- does not like cursing and does not believe in drinking or dancing. Initial goal aimed to increase engagement and socialization: Pt. will engage in three Activity Therapy groups or individual sessions before discharge. Goal changed 08/01/2019: Pt. will participate in at least five Activity Therapy groups per week.
--- NOTE | 2019-08-01 14:36 | NUR ---
[facility] Social Work Discharge Planning Form Patient Name BREN MALIK Admit Date: 07/25/2019 DISCHARGE PLAN Discharge Destination: [facility] Care Assessment: NA Level II Assessment: NA Transportation: [facility] staff to accompany pt. at time of discharge. Special Instructions/Notes: Please fax discharge paperwork and medication list to [phone]. DISCHARGE TO FACILITY Facility: [facility] Address: [address] [place] [address] Contact Name: HAKAN Mix PCP: Dr. Taina Reyes Psychiatrist: None
--- NOTE | 2019-08-01 14:43 | NUR ---
SHILPA contacted pt. daughter, Nirali, to discuss moving pt. to the [facility]. Nirali agreed to the move to see how pt. does in a less restrictive environment, to work with PT/OT, and see if pt. continues to be medication compliant. Nirali continues to look for placement option for time of discharge.
[2019-08-01] MEDS ORDERED: FLUO10CA13 PO (14:50)
[2019-08-01] MEDS ORDERED: LINA5TAB4 PO (14:52)
[2019-08-01] MEDS ORDERED: MAGN2400 PO (15:07)
[2019-08-01] MEDS ORDERED: MAG355OR12 PO (15:07)
[2019-08-01] MEDS ORDERED: METH28OI2 TP (15:08)
--- NOTE | 2019-08-01 15:56 | NUR ---
Transition Record was faxed to follow-up provider with the following elements: Reason for admission, procedures, tests, principal diagnosis, pending studies, patient instructions, 13/03 contact information for unit, phone number to obtain pending test results, plan for follow-up care, physician follow-up, advanced directive information, and medication list with dose, duration and instructions. This information was included in the following documents: History and physical, lab results, study results, progress notes, social work planning form, DC instruction form, patient visit summary, and medication reconciliation form. Date & time record faxed: 08/01/19 1600 Record faxed to: brenda rausch [facility] Record discussed with/ report given to: Brenda ext [phone]
--- NOTE | 2019-08-01 21:47 | DS ---
DATE OF DISCHARGE: 08/01/2019 FINAL DIAGNOSES: AXIS I: 1. Major depressive disorder with psychotic features. 2. Mild cognitive impairment. AXIS II: None. AXIS III: Diabetes mellitus, hypertension, diverticulitis, and recent fall with a laceration on the occipital region of the skull. REASON FOR ADMISSION: This was the readmission for this 84-year-old female, who was an inpatient at the [facility]. Apparently, she fell doing activity, hit her head, and had a fairly deep-sized laceration on her skull. Therefore, she went to Emergency Room at [facility] and she was discharged at the time. Since the return, patient apparently had one fall, but no major injuries and then becomes stable and did not have any more falls. The behavior improved. The patient was able to participate in some of the activities, but still withdrawn, slow to respond to questions, and has some psychomotor retardation and also cognitive deficits. HISTORY OF PRESENT ILLNESS: The patient apparently is having problems with the cognitive deficits, paranoia, obsessive compulsive behaviors, increased anxiety and depression, and also has been losing weight and not sleeping well. HOSPITAL COURSE: The patient had a physical exam and routine lab work on her prior hospitalization. The patient did not have any other major medical issues. The patient continues to show improvement. The patient did not present with any major behavior problems. CURRENT MEDICATIONS: Included Zyprexa 1.25 mg daily, mirtazapine 7.5 mg at night, and trazodone 50 mg at bedtime and also Prozac 10 mg daily and Risperdal 0.125 mg at night. The patient's other medications include B12, Tradjenta, lisinopril, Amaryl, metformin, and calcium carbonate. The patient did not have any seizures and no further falls. The patient is awaiting for a placement, but patient still needs a rehab for further stabilization. Therefore, she was [facility] the [facility]. ROSEMARY MICHAEL MD DR: INA/diane JOB#: [id number] / [id number]
== END 2019-08-01 15:55 | DRG 885 ==
LOC: GEROPSY 14:47
PROVIDERS: ADMIT Psychiatry & Neurology Psychiatry; ATTEND Psychiatry & Neurology Psychiatry
DX: F32.3 Major depressive disorder, single episode, severe with psychotic features (principal); K57.92 Diverticulitis of intestine, part unspecified, without perforation or abscess without bleeding; F41.1 Generalized anxiety disorder; Z66 Do not resuscitate; I10 Essential (primary) hypertension; Z79.899 Other long term (current) drug therapy; F03.90 Unspecified dementia, unspecified severity, without behavioral disturbance, psychotic disturbance, mood disturbance, and anxiety
CPT/HCPCS: 36415; 70450; 72125; 80053; 80061; 81001; 82306; 82607; 82947; 83036; 83540; 83550; 83735; 84436; 84443; 84480; 85025; 86592; 87086; 93005; 97110; 97116; 97530; 97535

== ENCOUNTER 2019-08-01 16:14 | Inpatient (IN) | payer MEDICARE ==
[~2019-08-01] VITALS: Ht 157.5 cm; Wt 53.6 kg
[~2019-08-01 16:14] MED LIST changes: +FLUO10CA13 PO; +LINA5TAB4 PO; +MAG355OR12 PO; +MAGN2400 PO; +METH28OI2 TP; +MIRT15TA PO; +MIRT7.5T8 PO; +OLAN5TAB5 PO; +RISP0.5T24 PO; +TRAZ-120 PO
[2019-08-01 18:18] VITALS: BP 125/72
[2019-08-01] MEDS ORDERED: MAG HYDROX/AL HYDROX/SIMETH 30 ML ORAL.SUSP PO PRN (19:45)
[2019-08-01] MEDS ORDERED: ACETAMINOPHEN 325 MG TABLET PO PRN (19:45)
[2019-08-01] MEDS ORDERED: CALCIUM CARBONATE 500 MG TAB.CHEW PO PRN (19:45)
[2019-08-01 20:13] VITALS: BP 105/67
[2019-08-01] MEDS ORDERED: METHYL SALICYLATE/MENTHOL TOPICAL OINTMENT 57GM TUBE. TP PRN (20:15)
[2019-08-01] MEDS ORDERED: ONDANSETRON ODT 4 MG TAB.RAPDIS PO PRN (20:15)
[2019-08-01] MEDS ORDERED: MAGNESIUM HYDROXIDE 2,400 MG/30 ML ORAL.SUSP. PO PRN (20:15)
[2019-08-02 05:25] VITALS: BP 116/67
[2019-08-02] MEDS: FLUoxetine HCL 10 MG CAPSULE PO SCH (08:28)
[2019-08-02] MEDS: GLIMEPIRIDE 2 MG TABLET PO SCH (08:28)
[2019-08-02] MEDS: LINAGLIPTIN 5 MG TABLET PO SCH (08:28)
[2019-08-02] MEDS: metFORMIN 500 MG TABLET PO SCH (08:28)
--- NOTE | 2019-08-02 10:03 | HP ---
ADMIT DATE: 08/02/2019 ADMISSION HISTORY AND PHYSICAL ATTENDING PHYSICIAN: Dr. Patel. CHIEF COMPLAINT: Confusion. HISTORY OF PRESENT ILLNESS: The patient is a pleasant 84-year-old female from [place]. She was transferred down to the swing bed from the [facility]. She is fairly independent. She was able to dress herself, put her shoes on. She is very quiet. She looks a bit confused. She has altered mentation. The CT of her head showed no evidence of acute intracranial process. There is age-related atrophy and chronic small vessel disease. Cervical spine was unremarkable. She had fallen and sustained a small laceration to the posterior scalp. The patient is very confused and does not give any useful information. PAST MEDICAL HISTORY: Gleaned from the chart. She has type 2 diabetes and essential hypertension. PAST SURGICAL HISTORY: Unobtainable except for the fact she has a scalp laceration that was stable. ALLERGIES: She has no known drug allergies. FAMILY HISTORY: Unobtainable. SOCIAL HISTORY: She lives at home. Nonsmoker, nondrinker, or recreational drugs. REVIEW OF SYSTEMS: Unfortunately is unobtainable. CURRENT MEDICATIONS: Reviewed. She was taking lisinopril 10 mg daily, Tylenol, Remeron, Zoloft 50 mg daily, trazodone 50 mg at bedtime, olanzapine, risperidone p.r.n., calcium carbonate, ondansetron, metformin, Januvia, and glimepiride. PHYSICAL EXAMINATION: GENERAL: When I saw her, this is a pleasantly confused elderly female. She did not appear in acute distress. She is afebrile. Her blood pressure was 98/50. Pulse and respirations were normal. She was afebrile. HEENT: Head is without trauma. Pupils are reactive. Sclerae nonicteric. Oropharynx is clear. No new lesions identified. NECK: Supple, no bruits. LUNGS: Otherwise clear to auscultation. CARDIOVASCULAR: Showed regular heart tones. No obvious gallops or murmurs. Peripheral pulses are palpable and full. ABDOMEN: Soft, scaphoid, nontender, no organomegaly. Bowel sounds are normoactive. EXTREMITIES: Show no cyanosis or edema. NEUROLOGIC: The patient is not aware of person, place or time. She cannot answer general questions. She had a rather blank stare. LABORATORY DATA: Earlier were reviewed. Her hemoglobin was 14.4 g/dL, normal white count. Chemistry panel is unremarkable. Creatinine is 1.2. Subsequent blood sugars have been within range. ASSESSMENT: 1. An 84-year-old female who had fallen at home, sustaining a scalp laceration. 2. Underlying dementia that is profound. I do believe she has reached the point in her life she cannot take care of herself. 3. Type 2 diabetes. 4. Essential hypertension. PLAN: 1. Admit to the rehabilitation unit. 2. computing services director to help the patient look at the eventual placement. 3. Home meds continued. 4. No new further recommendations for workup at this time. SANDRO QUIROS MD DR: JIMMY/diane JOB#: [id number] / [id number]
[2019-08-02 18:28] VITALS: BP 126/72
[2019-08-03 05:52] VITALS: BP 129/55
[2019-08-03] MEDS: metFORMIN 500 MG TABLET PO SCH (08:43)
[2019-08-03] MEDS: GLIMEPIRIDE 2 MG TABLET PO SCH (08:43)
[2019-08-03] MEDS: FLUoxetine HCL 10 MG CAPSULE PO SCH (08:43)
[2019-08-03] MEDS: LINAGLIPTIN 5 MG TABLET PO SCH (08:43)
[2019-08-03 18:16] VITALS: BP 135/58
[2019-08-04 05:50] VITALS: BP 109/66
[2019-08-04] MEDS: metFORMIN 500 MG TABLET PO SCH (09:13)
[2019-08-04] MEDS: FLUoxetine HCL 10 MG CAPSULE PO SCH (09:13)
[2019-08-04] MEDS: LINAGLIPTIN 5 MG TABLET PO SCH (09:13)
[2019-08-04] MEDS: GLIMEPIRIDE 2 MG TABLET PO SCH (09:13)
[2019-08-04 18:14] VITALS: BP 132/75
[2019-08-04 18:19] VITALS: BP 118/69
[2019-08-05 05:50] VITALS: BP 118/69
[2019-08-05] MEDS: GLIMEPIRIDE 2 MG TABLET PO SCH (08:09)
[2019-08-05] MEDS: metFORMIN 500 MG TABLET PO SCH (08:09)
[2019-08-05] MEDS: LINAGLIPTIN 5 MG TABLET PO SCH (08:09)
[2019-08-05] MEDS: FLUoxetine HCL 10 MG CAPSULE PO SCH (08:09)
[2019-08-05 18:07] VITALS: BP 121/65
[2019-08-06 06:31] VITALS: BP 115/61
[2019-08-06] MEDS: LINAGLIPTIN 5 MG TABLET PO SCH (08:03)
[2019-08-06] MEDS: GLIMEPIRIDE 2 MG TABLET PO SCH (08:03)
[2019-08-06] MEDS: FLUoxetine HCL 10 MG CAPSULE PO SCH (08:03)
[2019-08-06] MEDS: metFORMIN 500 MG TABLET PO SCH (08:03)
[2019-08-06 18:12] VITALS: BP 118/71
[2019-08-06] MEDS: traZODone 50 MG TABLET. PO PRN (20:18)
[2019-08-07 06:00] VITALS: BP 102/56
[2019-08-07] MEDS: LINAGLIPTIN 5 MG TABLET PO SCH (08:03)
[2019-08-07] MEDS: GLIMEPIRIDE 2 MG TABLET PO SCH (08:03)
[2019-08-07] MEDS: FLUoxetine HCL 10 MG CAPSULE PO SCH (08:03)
[2019-08-07] MEDS: metFORMIN 500 MG TABLET PO SCH (08:03)
[2019-08-07 18:18] VITALS: BP 94/56
[2019-08-07] MEDS: traZODone 50 MG TABLET. PO PRN (20:02)
[2019-08-08 05:19] VITALS: BP 109/59
[2019-08-08] MEDS: LINAGLIPTIN 5 MG TABLET PO SCH (08:54)
[2019-08-08] MEDS: FLUoxetine HCL 10 MG CAPSULE PO SCH (08:54)
[2019-08-08] MEDS: GLIMEPIRIDE 2 MG TABLET PO SCH (08:54)
[2019-08-08] MEDS: metFORMIN 500 MG TABLET PO SCH (08:54)
[2019-08-08 16:00] VITALS: BP 100/65
[2019-08-08] MEDS: traZODone 50 MG TABLET. PO PRN (21:08)
[2019-08-09 05:32] VITALS: BP 98/61
[2019-08-09] MEDS: LINAGLIPTIN 5 MG TABLET PO SCH (08:30)
[2019-08-09] MEDS: FLUoxetine HCL 10 MG CAPSULE PO SCH (08:30)
[2019-08-09] MEDS: GLIMEPIRIDE 2 MG TABLET PO SCH (08:30)
[2019-08-09] MEDS: metFORMIN 500 MG TABLET PO SCH (08:30)
[2019-08-09 17:50] VITALS: BP 119/75
[2019-08-09] MEDS: traZODone 50 MG TABLET. PO PRN (20:42)
[2019-08-10 05:40] VITALS: BP 96/59
[2019-08-10] MEDS: LINAGLIPTIN 5 MG TABLET PO SCH (09:26)
[2019-08-10] MEDS: GLIMEPIRIDE 2 MG TABLET PO SCH (09:27)
[2019-08-10] MEDS: metFORMIN 500 MG TABLET PO SCH (09:27)
[2019-08-10] MEDS: FLUoxetine HCL 10 MG CAPSULE PO SCH (09:27)
[2019-08-10] MEDS: SULFACETAMIDE 10% OPHTH SOLUTION 15ML BOTTLE. OU SCH ×2 (16:00→20:00)
[2019-08-10 18:05] VITALS: BP 106/69
[2019-08-10 18:48] LABS: BASO # 0.1 x10^3/uL (0.0-0.2); BASO % 1 % (0-3); EOS # 0.1 x10^3/uL (0.0-0.7); EOS % 2 % (0-3); HEMATOCRIT 38.1 % (36.0-47.0); HEMOGLOBIN 12.5 g/dL (12.0-15.5); LYMPH # 1.3 x10^3/uL (1.0-4.8); LYMPH % 20 % (24-48); MEAN CORPUSCULAR HEMOGLOBIN 30 pg (25-35); MEAN CORPUSCULAR HGB CONC 33 g/dL (31-37); MEAN CORPUSCULAR VOLUME 91 fL (79-100); MONO # 0.5 x10^3/uL (0.0-1.1); MONO % 7 % (0-9); NEUT # 4.5 x10^3uL (1.8-7.7); NEUT % 70 % (31-73); PLATELET COUNT 237 x10^3/uL (140-400); RED BLOOD COUNT 4.21 x10^6/uL (3.50-5.40); RED CELL DISTRIBUTION WIDTH 14.3 % (11.5-14.5); WHITE BLOOD COUNT 6.4 x10^3/uL (4.0-11.0)
[2019-08-10 18:55] LABS: ALBUMIN 3.1 g/dL (3.4-5.0); ALBUMIN/GLOBULIN RATIO 1.1 (1.0-1.7); CALCIUM 8.5 mg/dL (8.5-10.1); GFR 52.6; POTASSIUM 4.2 mmol/L (3.5-5.1); TOTAL BILIRUBIN 0.3 mg/dL (0.2-1.0)
[2019-08-10] MEDS: ERYTHROMYCIN 0.5% OPHTH OINTMENT 1GM TUBE. OU SCH (20:16)
[2019-08-11] MEDS: SULFACETAMIDE 10% OPHTH SOLUTION 15ML BOTTLE. OU SCH ×6 (04:00→20:00)
[2019-08-11 05:41] VITALS: BP 104/57
[2019-08-11] MEDS: FLUoxetine HCL 10 MG CAPSULE PO SCH (08:50)
[2019-08-11] MEDS: metFORMIN 500 MG TABLET PO SCH (08:50)
[2019-08-11] MEDS: GLIMEPIRIDE 2 MG TABLET PO SCH (08:50)
[2019-08-11] MEDS: LINAGLIPTIN 5 MG TABLET PO SCH (08:50)
[2019-08-11 17:58] VITALS: BP 107/68
[2019-08-11] MEDS: traZODone 50 MG TABLET. PO PRN (20:49)
[2019-08-11] MEDS: ERYTHROMYCIN 0.5% OPHTH OINTMENT 1GM TUBE. OU SCH (20:49)
[2019-08-12] MEDS: SULFACETAMIDE 10% OPHTH SOLUTION 15ML BOTTLE. OU SCH ×2 (00:39→04:22)
[2019-08-12 05:56] VITALS: BP 103/58
[2019-08-12] MEDS: metFORMIN 500 MG TABLET PO SCH (08:20)
[2019-08-12] MEDS: LINAGLIPTIN 5 MG TABLET PO SCH (08:20)
[2019-08-12] MEDS: GLIMEPIRIDE 2 MG TABLET PO SCH (08:20)
[2019-08-12] MEDS: FLUoxetine HCL 10 MG CAPSULE PO SCH (08:20)
--- NOTE | 2019-08-12 18:05 | DS ---
DATE OF DISCHARGE: 08/12/2019 HOSPITAL COURSE: The patient is an 84-year-old female patient who was [facility] on account of confusion. She was transferred to swing bed for continued process of rehabilitation and she did apparently very well and that she is now fairly independent a decision was made to discharge her. She was in fact discharged to [facility] in [place], [place]. PHYSICAL EXAMINATION: GENERAL: Prior to discharge this morning, she looked well and was clearly in no apparent respiratory distress. There was no pallor, jaundice, cyanosis. No lymphadenopathy, no thyromegaly. No jugular venous distention. No limb edema. VITAL SIGNS: Her heart rate was 64, blood pressure was 103/58, temperature was 98.1, respiratory rate was 18 and oxygen saturation was 95% on room air. HEAD, EYES, EARS, NOSE AND THROAT: Showed normocephalic, atraumatic. NECK: Supple. CARDIAC: Normal first and second heart sounds. No gallop or murmur. CHEST: Shows central trachea, equally reduced expansion, reduced air entry, vesicular sounds. I could not appreciate any crepitation or rhonchi. ABDOMEN: Slightly distended, soft, nontender. NEUROLOGIC: She was demented, but without any obvious lateralizing sign. Her intake was 700, no output was recorded. LABORATORY DATA: Her most recent lab work showed a white cell count 6400, hemoglobin 12.5, hematocrit 38, MCV 91, and platelet count 237,000. Her chemistry showed a serum sodium 141, potassium 4.2, chloride 104, bicarbonate 27, anion gap of 10, BUN 14, creatinine 1, estimated GFR was 52 mL per minute. Her glucose was 84 and calcium was 8.5. Total bilirubin, AST, ALT, alkaline phosphatase were normal. Total protein was 6, albumin was 3.1. DISCHARGE MEDICATIONS: She was discharged to the independent living to continue on Tylenol 650 mg every 4 hours, calcium carbonate 500 mg 4 times a day, fluoxetine or Prozac 10 mg once a day, glimepiride 2 mg daily, linagliptin Tradjenta 5 mg daily. She is on Mylanta 15 mL after meals as needed, milk of magnesia 30 mL p.o. daily p.r.n. for constipation, metformin 1000 mg daily, analgesic balm applied topically 4 times a day, olanzapine for Zyprexa Zydis 1.25 mg every 2 hours, Zofran 4 mg every 6 hours and trazodone 50 mg at bedtime. FINAL DISCHARGE DIAGNOSES: Type 2 diabetes, hypertension, depression and insomnia. MIGUEL ANGEL CASTILLO MD DR: MANSOOR/diane JOB#: [id number] / [id number]
== END 2019-08-12 09:10 | disposition home or self-care (01) | DRG 948 ==
LOC: LND 16:14
PROVIDERS: ADMIT Internal Medicine; ATTEND Internal Medicine
DX: R41.0 Disorientation, unspecified (principal); E11.51 Type 2 diabetes mellitus with diabetic peripheral angiopathy without gangrene; F03.90 Unspecified dementia, unspecified severity, without behavioral disturbance, psychotic disturbance, mood disturbance, and anxiety; F32.9 Major depressive disorder, single episode, unspecified; G47.00 Insomnia, unspecified; I10 Essential (primary) hypertension
CPT/HCPCS: 36415; 80053; 82947; 85025; 97110; 97116; 97530; 97535